=== PATIENT | female | born 1935 | race Caucasian/White ===

== ENCOUNTER 2018-10-25 09:54 | Emergency (ER) | payer MEDICARE ==
[~2018-10-25] VITALS: Ht 162.6 cm; Wt 75.7 kg
[~2018-10-25 09:54] MED LIST: ASPIRIN81 MG PO; SIMVASTATIN40 MG PO
[2018-10-25] MEDS ORDERED: SODIUM CHLORIDE 0.9% 1000ML 1,000 ML IV STA (10:14)
--- NOTE | 2018-10-25 10:43 | Diagnostic Imaging Report ---
CT BRAIN WO HISTORY: Fainting, dizziness COMPARISON: None. Technique: Noncontrast axial scans were obtained from skull base to the vertex. Coronal and sagittal reconstructions obtained from the axial data. One or more of the following dose reduction techniques were used: Automated exposure control, adjustment of the mA and/or kV according to patient size, and/or utilization of iterative reconstruction technique. DISCUSSION: Scalp/Skull: Mild left frontal scalp subcutaneous edema is present. No calvarial fracture Brain sulci: Mildly prominent. Ventricles: Compensatory dilatation. Extra-axial spaces: No masses or fluid collections. Carotid siphon calcifications are present. Parenchyma: Mild bilateral deep white matter hypodensity is likely chronic microvascular ischemic change. Otherwise, no masses, hemorrhage, or large vascular territory acute infarct. Dural sinuses: No abnormal densities. Sellar/Suprasellar region: Intact. Skull base: Intact. Incidental findings: Both ocular lenses are thinned. IMPRESSION: 1. No acute intracranial abnormalities. 2. Mild supratentorial chronic microvascular ischemic change. Mild generalized cerebral volume loss. Signed by: Dr. Pete Neumann M.D. on 10/25/2018 10:40 AM
--- NOTE | 2018-10-25 11:17 | Diagnostic Imaging Report ---
EXAMINATION: CHEST 2 VIEWS INDICATION: Dizziness, weakness. COMPARISON: None FINDINGS: TUBES and LINES: None. LUNGS: Lungs are well inflated. There is mild patchy left basilar opacity. No evidence of pulmonary edema. PLEURA: No pleural effusion or pneumothorax. HEART AND MEDIASTINUM: The cardiomediastinal silhouette is unremarkable. BONES AND SOFT TISSUES: No acute osseous abnormality. UPPER ABDOMEN: No free air under the diaphragm. Surgical clips project over the upper abdomen. IMPRESSION: Mild patchy left basilar opacity, which may reflect a small focus of aspiration or atelectasis. Recommend follow-up chest radiograph in 6-8 weeks to assess for resolution. Signed by: Dr. Sybil Dan MD on 10/25/2018 11:14 AM
[2018-10-25 11:47] LABS: BASOPHILS % 0.2 % (0.0-1.0); EOSINOPHILS % 0.1 % (0.0-6.0); HEMATOCRIT 37.3 % (34.2-44.1); HEMOGLOBIN 12.4 g/dL (12.0-16.0); LYMPHOCYTES # (AUTO) 0.7 (1.0-3.2); LYMPHOCYTES % 5.5 % (18.0-39.1); MEAN CORPUSCULAR HEMOGLOBIN 28.8 pg (28-32); MEAN CORPUSCULAR HGB CONC 33.2 g/dL (31-35); MEAN CORPUSCULAR VOLUME 86.5 fL (81-99); MONOCYTES % 8.3 % (4.4-11.3); NEUTROPHILS # (AUTO) 10.6 (2.1-6.9); NEUTROPHILS % 85.1 % (38.7-80.0); PLATELET COUNT 338 x10e3/uL (140-360); RED BLOOD COUNT 4.31 x10e6/uL (3.6-5.1); RED CELL DISTRIBUTION WIDTH 13.7 % (11.7-14.4)
[2018-10-25 12:03] LABS: BILIRUBIN,URINE NEGATIVE (NEGATIVE); CLARITY,URINE CLOUDY (CLEAR); COLOR,URINE YELLOW (YELLOW); KETONES,URINE TRACE (NEGATIVE); LEUKOCYTE ESTERASE ,URINE LARGE (NEGATIVE); NITRITE,URINE NEGATIVE (NEGATIVE); PROTEIN,URINE DIPSTICK 2+ (NEGATIVE); URINE UROBILINOGEN 1 mg/dL (0.2 - 1)
[2018-10-25 12:15] LABS: ALANINE AMINOTRANSFERASE 23 IU/L (0-55); ALBUMIN 3.1 g/dL (3.5-5.0); ALBUMIN/GLOBULIN RATIO 0.8 (0.8-2.0); ALKALINE PHOSPHATASE 69 IU/L (40-150); ANION GAP 13.7 mmol/L (8-16); BLOOD UREA NITROGEN 15 mg/dL (7-26); BUN/CREATININE RATIO 14 (6-25); CALCIUM 9.9 mg/dL (8.4-10.2); CARBON DIOXIDE 24 mmol/L (22-29); CHLORIDE 101 mmol/L (98-107); CREATINE KINASE 90 IU/L (29-168); CREATININE, SERUM 1.05 mg/dL (0.57-1.11); EST GLOMERULAR FILTRATION RATE 50 ML/MIN (60-); GLUCOSE 113 mg/dL (74-118); POTASSIUM 3.7 mmol/L (3.5-5.1); SODIUM 135 mmol/L (136-145)
[2018-10-25 12:16] LABS: INR 1.03
[2018-10-25 12:17] LABS: PARTIAL THROMBOPLASTIN TIME 31.9 seconds (23.8-35.5)
[2018-10-25 12:36] LABS: WBC,URINE (MAN) >50 /HPF (0-5)
[2018-10-25 12:50] LABS: BACTERIA,URINE MODERATE /HPF; EPITHELIAL CELLS,URINE FEW /LPF
[2018-10-25] MEDS ORDERED: CEFTRIAXONE SOD 1 GM/NS 50 ML 50 ML IV ONE (13:15)
== END 2018-10-25 14:15 | disposition home or self-care (01) ==
LOC: ER 09:54
DX: R55 Syncope and collapse (principal); R53.1 Weakness; N30.91 Cystitis, unspecified with hematuria; E78.5 Hyperlipidemia, unspecified
CPT/HCPCS: 36415; 70450; 71046; 80053; 81001; 82550; 82553; 84484; 85025; 85610; 85730; 87086; 87186; 93005; 99284; J0696; J7030

== ENCOUNTER 2019-12-10 12:33 | Inpatient (IN) | payer MEDICARE ==
[~2019-12-10] VITALS: Ht 162.6 cm; Wt 95.3 kg
[2019-12-10] MEDS ORDERED: SODIUM CHLORIDE 0.9% 1000ML 1,000 ML IV STA (12:47)
[2019-12-10 13:08] LABS: BASOPHILS % 0.1 % (0.0-1.0); EOSINOPHILS % 0.5 % (0.0-6.0); HEMATOCRIT 42.6 % (34.2-44.1); HEMOGLOBIN 13.7 g/dL (12.0-16.0); LYMPHOCYTES # (AUTO) 0.5 (1.0-3.2); MEAN CORPUSCULAR HEMOGLOBIN 28.2 pg (28-32); MEAN CORPUSCULAR HGB CONC 32.2 g/dL (31-35); MEAN CORPUSCULAR VOLUME 87.8 fL (81-99); MONOCYTES # (AUTO) 0.5 (0.2-0.8); MONOCYTES % 6.8 % (4.4-11.3); NEUTROPHILS # (AUTO) 6.8 (2.1-6.9); NEUTROPHILS % 86.2 % (38.7-80.0); PLATELET COUNT 226 x10e3/uL (140-360); RED BLOOD COUNT 4.85 x10e6/uL (3.6-5.1); RED CELL DISTRIBUTION WIDTH 13.9 % (11.7-14.4)
[2019-12-10 13:17] LABS: INR 0.87; PROTHROMBIN TIME 12.3 seconds (11.9-14.5)
[2019-12-10 13:18] LABS: PARTIAL THROMBOPLASTIN TIME 25.4 seconds (23.8-35.5)
[2019-12-10 13:26] LABS: ALANINE AMINOTRANSFERASE 18 IU/L (0-55); ALBUMIN 3.8 g/dL (3.5-5.0); ALBUMIN/GLOBULIN RATIO 1.4 (0.8-2.0); ALKALINE PHOSPHATASE 70 IU/L (40-150); ANION GAP 13.8 mmol/L (8-16); BLOOD UREA NITROGEN 15 mg/dL (7-26); BUN/CREATININE RATIO 17 (6-25); CALCIUM 8.7 mg/dL (8.4-10.2); CARBON DIOXIDE 22 mmol/L (22-29); CHLORIDE 108 mmol/L (98-107); CREATINE KINASE 95 IU/L (29-168); CREATININE, SERUM 0.89 mg/dL (0.57-1.11); EST GLOMERULAR FILTRATION RATE > 60 ML/MIN (60-); GLUCOSE 129 mg/dL (74-118); MAGNESIUM 1.8 MG/DL (1.3-2.1); POTASSIUM 3.8 mmol/L (3.5-5.1); SODIUM 140 mmol/L (136-145)
[2019-12-10 13:35] LABS: B-TYPE NATRIURETIC PEPTIDE2 < 10.0 pg/mL (0-100)
[2019-12-10 14:00] LABS: BILIRUBIN,URINE SMALL (NEGATIVE); CLARITY,URINE SL CLOUDY (CLEAR); COLOR,URINE YELLOW (YELLOW); KETONES,URINE 1+ (NEGATIVE); LEUKOCYTE ESTERASE ,URINE NEGATIVE (NEGATIVE); NITRITE,URINE POSITIVE (NEGATIVE); PROTEIN,URINE DIPSTICK 2+ (NEGATIVE); URINE UROBILINOGEN 0.2 mg/dL (0.2 - 1)
[2019-12-10 14:05] LABS: BACTERIA,URINE MANY /HPF; EPITHELIAL CELLS,URINE FEW /LPF; WBC,URINE (MAN) 0-5 /HPF (0-5)
--- NOTE | 2019-12-10 15:12 | Diagnostic Imaging Report ---
CT BRAIN WO HISTORY: Syncope COMPARISON: Head CT 10/25/2018 Technique: Noncontrast axial scans were obtained from skull base to the vertex. Coronal and sagittal reconstructions obtained from the axial data. One or more of the following dose reduction techniques were used: Automated exposure control, adjustment of the mA and/or kV according to patient size, and/or utilization of iterative reconstruction technique. DISCUSSION: Scalp/Skull: Unremarkable. Brain sulci: Mildly prominent. Ventricles: Compensatory dilatation. Extra-axial spaces: No masses or fluid collections. Carotid siphon calcifications are present. Parenchyma: Mild bilateral deep white matter hypodensity is likely chronic microvascular ischemic change. Otherwise, no masses, hemorrhage, or large vascular territory acute infarct. Dural sinuses: No abnormal densities. Sellar/Suprasellar region: Intact. Skull base: Intact. Incidental findings: None. IMPRESSION: 1. No acute intracranial abnormalities. 2. Mild supratentorial chronic microvascular ischemic change. Mild generalized cerebral volume loss. Signed by: Dr. Pete Neumann M.D. on 12/10/2019 3:09 PM
--- NOTE | 2019-12-10 15:33 | Diagnostic Imaging Report ---
EXAMINATION: CHEST SINGLE (PORTABLE) INDICATION: Near syncope. COMPARISON: Chest radiograph 10-25-2018. FINDINGS: TUBES and LINES: None. LUNGS: Lungs are well inflated. Mild patchy bibasilar opacities. No evidence of lobar consolidation or pulmonary edema. PLEURA: No pleural effusion or pneumothorax. HEART AND MEDIASTINUM: The cardiomediastinal silhouette is unremarkable. There are atherosclerotic calcifications within the aorta. BONES AND SOFT TISSUES: No acute osseous abnormality. UPPER ABDOMEN: No free air under the diaphragm. IMPRESSION: Mild patchy bibasilar opacities, which may represent atelectasis or infectious process in the appropriate clinical setting. No evidence of lobar pneumonia. Signed by: Dr. Sybil Dan MD on 12/10/2019 3:29 PM
--- NOTE | 2019-12-10 16:20 | Emergency Department Note ---
History of Present Illnes History of Present Illness Chief Complaint: General Medicine Complaints History of Present Illness This is a 84 year old female FROM HOME. FELT DIZZY AND WEAK NEAR SYNCOPE, DEFECATED ON HERSELF. AAOX4. WAS HYPOTENSIVE ON ARRIVAL OF EMS AND GIVEN FLUIDS AND NOW BP 120/ SYSTOLIC. PT AWAKE AND ALERT AT ARRIVAL TIME. 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 Any updates have been documented here. Past Medical History Recent Fever: No Clinical Suspicion of Infectio: No New/Unexplained Change in Ment: No Past Medical History: Hyperlipedemia Other Medical History: cholesterol Past Surgical History: Cholecysctectomy, Appendectomy, Hysterectomy, T&A, Tubal Ligation Other Surgery: GB Social History Smoking Cessation: Unknown if ever smoked Counseling Performed: No Alcohol Use: None Any Illegal Drug Use: No Other Last Tetanus: unknown Any Pre-Existing Lines (PICC,: Yes (PIV LEFT AC) Review of Systems Review of Systems Constitutional: Reports weakness EENTM: Reports no symptoms Cardiovascular: Reports no symptoms Respiratory: Reports no symptoms Gastrointestinal: Reports no symptoms Genitourinary: Reports no symptoms Musculoskeletal: Reports no symptoms Integumentary: Reports no symptoms Neurological: Reports no symptoms Psychological: Reports no symptoms Endocrine: Reports no symptoms Hematological/Lymphatic: Reports no symptoms Physical Exam Related Data Allergies: Coded Allergies: No Known Allergies (Unverified , 10/25/18) Triage Vital Signs Vital Signs Date Time Temp Pulse Resp B/P (MAP) Pulse Ox O2 Delivery O2 Flow Rate FiO2 12/10/19 12:43 98.7 76 21 129/63 98 Room Air Vital signs reviewed: Yes Physical Exam CONSTITUTIONAL Constitutional: Present well-developed, Present well-nourished HENT HENT: Present normocephalic, Present atraumatic, Present oropharynx clear/mois t, Present nose normal HENT L/R: Present left ext ear normal, Present right ext ear normal EYES Eyes: Reports PERRL, Reports conjunctivae normal NECK Neck: Present ROM normal PULMONARY Pulmonary: Present effort normal, Present breath sounds normal CARDIOVASCULAR Cardiovascular: Present regular rhythm, Present heart sounds normal, Present capillary refill normal, Present normal rate GASTROINTESTINAL Abdominal: Present soft, Present nontender, Present bowel sounds normal GENITOURINARY Genitourinary: Present exam deferred SKIN Skin: Present warm, Present dry MUSCULOSKELETAL Musculoskeletal: Present ROM normal NEUROLOGICAL Neurological: Present alert, Present oriented x 3, Present no gross motor or sensory deficits PSYCHOLOGICAL Psychological: Present mood/affect normal, Present judgement normal Results Laboratory Result Diagram: 12/10/19 1258 12/10/19 1258 Laboratory Laboratory Tests Test 12/10/19 13:35 12/10/19 12:58 Urine Color Yellow (YELLOW) Urine Clarity Sl cloudy (CLEAR) Urine pH 6 (5 - 7) Urine Specific [place] >=1.030 (1.010-1.025) Urine Protein 2+ (NEGATIVE) Urine Glucose (UA) Negative (NEGATIVE) Urine Ketones 1+ (NEGATIVE) Urine Blood Moderate (NEGATIVE) Urine Nitrite Positive (NEGATIVE) Urine Bilirubin Small (NEGATIVE) Urine Urobilinogen 0.2 mg/dL (0.2 - 1) Urine Leukocyte Esterase Negative (NEGATIVE) Urine RBC 6-10 /HPF (0-5) Urine WBC 0-5 /HPF (0-5) Urine Epithelial Cells Few /LPF (NONE) Urine Bacteria Many /HPF (NONE) White Blood Count 7.89 x10e3/uL (4.8-10.8) Red Blood Count 4.85 x10e6/uL (3.6-5.1) Hemoglobin 13.7 g/dL (12.0-16.0) Hematocrit 42.6 % (34.2-44.1) Mean Corpuscular Volume 87.8 fL (81-99) Mean Corpuscular Hemoglobin 28.2 pg (28-32) Mean Corpuscular Hemoglobin Concent 32.2 g/dL (31-35) Red Cell Distribution Width 13.9 % (11.7-14.4) Platelet Count 226 x10e3/uL (140-360) Neutrophils (%) (Auto) 86.2 % (38.7-80.0) Lymphocytes (%) (Auto) 6.0 % (18.0-39.1) Monocytes (%) (Auto) 6.8 % (4.4-11.3) Eosinophils (%) (Auto) 0.5 % (0.0-6.0) Basophils (%) (Auto) 0.1 % (0.0-1.0) Neutrophils # (Auto) 6.8 (2.1-6.9) Lymphocytes # (Auto) 0.5 (1.0-3.2) Monocytes # (Auto) 0.5 (0.2-0.8) Eosinophils # (Auto) 0.0 (0.0-0.4) Basophils # (Auto) 0.0 (0.0-0.1) Absolute Immature Granulocyte (auto 0.03 x10e3/uL (0-0.1) Prothrombin Time 12.3 seconds (11.9-14.5) Prothromb Time International Ratio 0.87 Activated Partial Thromboplast Time 25.4 seconds (23.8-35.5) Sodium Level 140 mmol/L (136-145) Potassium Level 3.8 mmol/L (3.5-5.1) Chloride Level 108 mmol/L (98-107) Carbon Dioxide Level 22 mmol/L (22-29) Anion Gap 13.8 mmol/L (8-16) Blood Urea Nitrogen 15 mg/dL (7-26) Creatinine 0.89 mg/dL (0.57-1.11) Estimat Glomerular Filtration Rate > 60 ML/MIN (60-) BUN/Creatinine Ratio 17 (6-25) Glucose Level 129 mg/dL (74-118) Lactic Acid Level 1.7 mmol/L (0.5-2.0) Calcium Level 8.7 mg/dL (8.4-10.2) Magnesium Level 1.8 MG/DL (1.3-2.1) Total Bilirubin 0.6 mg/dL (0.2-1.2) Aspartate Amino Transf (AST/SGOT) 27 IU/L (5-34) Alanine Aminotransferase (ALT/SGPT) 18 IU/L (0-55) Alkaline Phosphatase 70 IU/L (40-150) Creatine Kinase 95 IU/L (29-168) Creatine Kinase MB 1.00 ng/mL (0-5.0) Troponin I 0.002 ng/mL (0-0.300) B-Type Natriuretic Peptide < 10.0 pg/mL (0-100) Total Protein 6.5 g/dL (6.5-8.1) Albumin 3.8 g/dL (3.5-5.0) Globulin 2.7 g/dL (2.3-3.5) Albumin/Globulin Ratio 1.4 (0.8-2.0) Lab results reviewed: Yes Imaging Imaging results reviewed: Yes Impressions CT BRAIN WO HISTORY: Syncope COMPARISON: Head CT 10/25/2018 Technique: Noncontrast axial scans were obtained from skull base to the vertex. Coronal and sagittal reconstructions obtained from the axial data. One or more of the following dose reduction techniques were used: Automated exposure control, adjustment of the mA and/or kV according to patient size, and/or utilization of iterative reconstruction technique. DISCUSSION: Scalp/Skull: Unremarkable. Brain sulci: Mildly prominent. Ventricles: Compensatory dilatation. Extra-axial spaces: No masses or fluid collections. Carotid siphon calcifications are present. Parenchyma: Mild bilateral deep white matter hypodensity is likely chronic microvascular ischemic change. Otherwise, no masses, hemorrhage, or large vascular territory acute infarct. Dural sinuses: No abnormal densities. Sellar/Suprasellar region: Intact. Skull base: Intact. Incidental findings: None. IMPRESSION: 1. No acute intracranial abnormalities. 2. Mild supratentorial chronic microvascular ischemic change. Mild generalized cerebral volume loss. Signed by: Dr. Pete Neumann M.D. on 12/10/2019 3:09 PM EXAMINATION: CHEST SINGLE (PORTABLE) INDICATION: Near syncope. COMPARISON: Chest radiograph 10-25-2018. FINDINGS: TUBES and LINES: None. LUNGS: Lungs are well inflated. Mild patchy bibasilar opacities. No evidence of lobar consolidation or pulmonary edema. PLEURA: No pleural effusion or pneumothorax. HEART AND MEDIASTINUM: The cardiomediastinal silhouette is unremarkable. There are atherosclerotic calcifications within the aorta. BONES AND SOFT TISSUES: No acute osseous abnormality. UPPER ABDOMEN: No free air under the diaphragm. IMPRESSION: Mild patchy bibasilar opacities, which may represent atelectasis or infectious process in the appropriate clinical setting. No evidence of lobar pneumonia. Signed by: Dr. Sybil Dan MD on 12/10/2019 3:29 PM Procedures 12 Lead ECG Interpretation ECG Interpretation : ECG: ECG 1 Bank Representative: Interpreted by ED physician Date: Dec 10, 2019 Time: 12:49 Rhythm: sinus rhythm Rate: normal (74) QRS axis: normal ST segments normal: Yes T waves normal: Yes Clinical Impression: normal ECG Assessment & Plan Medical Decision Making MDM near-syncope with loss of bowel fx, hypotensive per EMS - cbc, chem, ecg, cardiacs, pancx's, ua, cxr, head ct - r/o stemi/nstemi, electrolyte abnl, cerebral bleed Reassessment Reassessment spoke with Dr Doherty for admit Assessment & Plan Final Impression: (1) Near syncope Depart Disposition: ADMITTED Last Vital Signs Date Time Temp Pulse Resp B/P (MAP) Pulse Ox O2 Delivery O2 Flow Rate FiO2 12/10/19 15:17 86 16 97 Room Air 12/10/19 12:43 98.7 Home Meds Reported Medications Aspirin (ASPIRIN) 81 Mg Tab.chew, 81 MG PO DAILY 08/07/15 Simvastatin (SIMVASTATIN) 40 Mg Tablet, 40 MG PO 2100, #30 TAB 08/07/15 Medications in the ED Sodium Chloride 1,000 ml @ 0 mls/hr Q0M STAT IV Last administered on 12/10/19at 13:16; Admin Dose 999 MLS/HR; Start 12/10/19 at 12:47; Stop 12/10/19 at 12:53; Status DC Ceftriaxone Sodium 100 ml @ 100 mls/hr DAILY IV ; Start 12/11/19 at 15:30; Stop 12/16/19 at 15:29 Azithromycin 250 ml @ 100 mls/hr DAILY IV ; Start 12/11/19 at 09:00; Stop 12/10/19 at 15:15; Status DC Ascorbic Acid 500 mg BID PO ; Start 12/10/19 at 17:00; Stop 01/09/20 at 16:59 Zinc Sulfate 50 mg DAILY PO ; Start 12/11/19 at 09:00; Stop 01/10/20 at 08:59 Enoxaparin Sodium 30 mg Q12H SC ; Start 12/10/19 at 17:00; Stop 12/17/19 at 16:59 Azithromycin 250 ml @ 100 mls/hr Q24H IV ; Start 12/10/19 at 17:00; Stop 12/17/19 at 16:59 LO ANDREW MD Dec 10, 2019 16:20
[2019-12-10] MEDS ORDERED: ONDANSETRON HCL INJ 2MG/ML 2ML 2 MG/ML VIAL IV PRN (17:00)
[2019-12-10] MEDS ORDERED: ASCORBIC ACID 500 MG TAB PO SCH (17:00)
[2019-12-10] MEDS ORDERED: ENOXAPARIN 30 MG/0.3 ML SYR SC SCH (17:00)
[2019-12-10] MEDS: AZITHROMYCIN 500MG/NS 250 ML 250 ML IV SCH (18:04)
[2019-12-10] MEDS ORDERED: SIMVASTATIN20 MG PO (18:14)
[2019-12-10 19:47] VITALS: BP 127/67
[2019-12-10 19:48] VITALS: BP 127/67
--- NOTE | 2019-12-10 19:55 | NUR ---
patient is a new admit that arrived via wheelchair. patient is awake and talking. patient has telemetry attached. patient has been transferred into the bed. bed is in the lowest position and call light is within reach. will continue to monitor patient.
[2019-12-10] MEDS: ACETAMINOPHEN 325 MG TAB PO PRN (20:36)
[2019-12-10 20:57] VITALS: BP 127/67
[2019-12-11] VITALS (8 sets, daily range): BP systolic 113–133; BP diastolic 58–72
[2019-12-11 01:24] LABS: CREATINE KINASE 111 IU/L (29-168)
[2019-12-11 05:31] LABS: BASOPHILS % 0.4 % (0.0-1.0); EOSINOPHILS # (AUTO) 0.1 (0.0-0.4); EOSINOPHILS % 2.1 % (0.0-6.0); HEMATOCRIT 37.4 % (34.2-44.1); LYMPHOCYTES # (AUTO) 0.7 (1.0-3.2); LYMPHOCYTES % 10.2 % (18.0-39.1); MEAN CORPUSCULAR HEMOGLOBIN 27.9 pg (28-32); MEAN CORPUSCULAR HGB CONC 32.1 g/dL (31-35); MONOCYTES # (AUTO) 0.9 (0.2-0.8); MONOCYTES % 12.8 % (4.4-11.3); NEUTROPHILS % 74.2 % (38.7-80.0); PLATELET COUNT 203 x10e3/uL (140-360)
--- NOTE | 2019-12-11 06:18 | NUR ---
MD notified of routine consultation via telephone.
[2019-12-11 06:19] LABS: CREATINE KINASE MB 1.3 ng/mL (0-5.0)
[2019-12-11 06:38] LABS: ALANINE AMINOTRANSFERASE 18 IU/L (0-55); ALBUMIN 3.3 g/dL (3.5-5.0); ALBUMIN/GLOBULIN RATIO 1.3 (0.8-2.0); ALKALINE PHOSPHATASE 63 IU/L (40-150); ANION GAP 11.6 mmol/L (8-16); BLOOD UREA NITROGEN 11 mg/dL (7-26); BUN/CREATININE RATIO 14 (6-25); CALCIUM 8.7 mg/dL (8.4-10.2); CARBON DIOXIDE 22 mmol/L (22-29); CHLORIDE 107 mmol/L (98-107); CHOL/HDL RATIO 3.8 (3.0-3.6); CHOLESTEROL 132 MD/DL (0-199); CREATININE, SERUM 0.81 mg/dL (0.57-1.11); EST GLOMERULAR FILTRATION RATE > 60 ML/MIN (60-); GLUCOSE 95 mg/dL (74-118); HDL CHOLESTEROL 35 MG/DL (40-60); LDL CHOLESTEROL 70 MG/DL (60-130); POTASSIUM 3.6 mmol/L (3.5-5.1); SODIUM 137 mmol/L (136-145); TRIGLYCERIDES 135 MG/DL (0-149)
--- NOTE | 2019-12-11 07:07 | NUR ---
report given to day nurse.
--- NOTE | 2019-12-11 07:25 | NUR ---
PATIENT IN BED RESTING WITH NO S/S OF DISTRESS. CM CATHETER DRAINING YELLOW URINE. BED IN LOWER POSITION, CALL LIGHT AT REACH.
[2019-12-11] MEDS ORDERED: AZITHROMYCIN 500MG/NS 250 ML 250 ML IV SCH (09:00)
[2019-12-11] MEDS ORDERED: ZINC SULFATE 50 MG CAP PO SCH (09:00)
[2019-12-11] MEDS: ASPIRIN 81 MG ENTERIC COATED PO SCH (09:18)
[2019-12-11] MEDS: ACETAMINOPHEN 325 MG TAB PO PRN (10:08)
--- NOTE | 2019-12-11 11:04 | NUR ---
BED SIDE CAROTID DOPPLER IN PROGRESS. PATIENT IN BED WITH CALL LIGHT AT REACH.
--- NOTE | 2019-12-11 15:28 | NUR ---
MD IN TO SEE PATIENT, NO NEW ORDER RECEIVED.
[2019-12-11] MEDS: AZITHROMYCIN 500MG/NS 250 ML 250 ML IV SCH (16:00)
[2019-12-11] MEDS: CEFTRIAXONE SOD 2 GM/NS 100 ML 100 ML IV SCH (16:10)
[2019-12-11] MEDS ORDERED: DOCUSATE SODIUM 100 MG CAP PO PRN (16:45)
[2019-12-11] MEDS: SIMVASTATIN 40 MG TAB PO SCH (20:12)
[2019-12-11] MEDS ORDERED: MELATONIN 5 MG TABLET PO PRN (21:00)
--- NOTE | 2019-12-11 23:10 | History and Physical ---
CHIEF COMPLAINT: Syncopal episode. HISTORY OF PRESENT ILLNESS: 84-year-old female, morbidly obese, has a history of hyperlipidemia, presents to the ED after having a syncopal episode that occurred at home. The patient reports that her told her a story that she was eating cereal yesterday morning and when she was ambulating from the living room to her kitchen, she suddenly collapsed and fell on the ground. She has never experienced anything like this before. No reports of any chest pain, palpitations, slurred-like speech, stroke-like symptoms. No reports of any seizure-like activity. The patient has never experienced anything like this before and came into the ED for further evaluation and management. The patient was seen and evaluated at bedside on the medical floor. She is currently doing well with no other issues at this time. No recent infection cough, congestion, or any fever. REVIEW OF SYSTEMS: Pertinent positive had a syncopal episode, lightheadedness. The rest of 14-point review of systems have been reviewed with the patient and are negative. ALLERGIES: NO KNOWN DRUG ALLERGIES. HOME MEDICATIONS: Aspirin 81 mg air daily and simvastatin 40 mg daily. PAST MEDICAL HISTORY: Hyperlipidemia. PAST SURGICAL HISTORY: Reports none. FAMILY HISTORY: Hypertension and diabetes. SOCIAL HISTORY: No drugs or alcohol. Does not smoke. Good social support. PHYSICAL EXAMINATION: VITAL SIGNS: Temperature is 99.1, pulse 72, respiratory rate is 18, blood pressure 118/65, and pulse ox 99% on room air. GENERAL: Not in acute distress. Alert and oriented x3. Cooperative on examination. HEENT: Head is normocephalic and atraumatic. Eyes; pupils are equal, round, and reactive to light bilaterally. Extraocular movements are intact bilaterally. NECK: Supple. Good range of motion throughout. No symptoms in the posterior pharynx. Has poor dentition. PULMONARY : Clear to auscultation bilaterally. No wheezing, rales, or rhonchi. No crackles appreciated. CARDIOVASCULAR: Positive S1 and S2. No murmurs, rubs, or gallops. ABDOMEN: Soft, nondistended, and nontender to palpation. Bowel sounds present. MUSCULOSKELETAL: Strength is 5/5 throughout. No evidence of any muscle deficits on examination. No weakness appreciated. NEUROLOGIC: Cranial 2 through 12 are grossly intact. No evidence of any muscle deficits one exam. SKIN: Intact. Warm to touch. Good cap refill. PSYCHIATRIC: Normal affect and mood. EXTREMITIES: No edema. Good range of motion throughout. LABORATORY FINDINGS: White count 6.4, hemoglobin 12, hematocrit 37, and platelets of 203. Coagulation; PT 12, INR 0.87, PTT 25. Chemistry; sodium 137, potassium 3.6, chloride 107, bicarb 22, anion gap of 11, BUN is 11, creatinine 0.81, glucose is 95. Lactic acid 1.7, calcium is 8.7. LFTs within normal range. Troponins were all negative. Total protein 5.9, albumin is 3.3 LDL was 70. Urinalysis noted possible underlying UTI. The coronavirus is pending. MICROBIOLOGY: Blood cultures no growth today. Urine culture shows gram-negative rods. IMAGING STUDIES: Chest x-ray shows mild patchy bibasilar opacity which may represent atelectasis or infectious process in appropriate clinical setting. No evidence of lobar pneumonia. CT brain shows no acute intracranial abnormality. Mild supratentorial chronic microvascular ischemic changes. Mild generalized cerebral volume loss. Carotid Doppler is pending. IMPRESSION: 1. Syncopal episode seems to be more vasovagal in nature. 2. Hyperlipidemia. 3. Probable community-acquired pneumonia. 4. Urinary tract infection. PLAN: At this time, I will go ahead and get a Cardiology and Neurology consultation. A 2D echo has been ordered. Continue with cardiac telemetry. Cardiac enzymes are negative. Continue with aspirin and statin. As per Neurology, MRI of the brain will be ordered. Carotid ultrasound as well. I will go ahead and resume same home medications with no changes. We will put on SCDs for now. Lovenox after MRI of the brain is back and found to be negative. Get PT to evaluate and treat. Imaging studies were consistent with concerns for pneumonia. We will go ahead and treat with IV antibiotics. Her UA is consistent with the UTI. Urine cultures positive already. Blood cultures no growth to date. We will continue with IV antibiotics for now. Consultants involved Neurology and Cardiology. MD OSCAR Akhtar/JAC /[id number]
[2019-12-12] VITALS (8 sets, daily range): BP systolic 111–134; BP diastolic 53–98
--- NOTE | 2019-12-12 06:47 | NUR ---
patient is resting in bed.
--- NOTE | 2019-12-12 07:00 | NUR ---
RECEIVED BEDSIDE SHIFT REPORT FROM OFF GOING NIGHT NURSE. PATIENT IN STABLE CONDITION, NO S/S OF DISTRESS NOTED.TELEMETRY APPLIED. CM APPLIED PATENT DRAINING CLEAR YELLOW URINE INTO THE DRAINAGE BAG. BED ALARM APPLIED. BED IN LOWEST POSITION AND LOCKED.
[2019-12-12] MEDS: CEFTRIAXONE SOD 2 GM/NS 100 ML 100 ML IV SCH (08:48)
[2019-12-12] MEDS: ASPIRIN 81 MG ENTERIC COATED PO SCH (08:48)
--- NOTE | 2019-12-12 10:11 | Consultation ---
DATE OF CONSULTATION: 12/12/2019 REASON FOR CONSULTATION: Syncope. CHIEF COMPLAINT: Passed out. HISTORY OF PRESENT ILLNESS: This is an 84-year-old female with history of hyperlipidemia. The patient presents to [facility] ER with complaints of passing out. Cardiology was consulted to evaluate the patient. The patient is seen in room, reports that she was eating cereal and felt nauseous, went to the kitchen in which she felt very weak and falling to her knees and also had some incontinence of stool and urine at the same time. She called for in which EMS was called. Apparently, the patient was noted to be hypotensive, was given fluid bolus. UA suggestive of UTI and urine cultures with gram-negative rods. The patient denies any chest pain, palpitations, dizziness, lightheadedness prior to the event. Her main complaint is she felt very weak and nauseous. PAST MEDICAL HISTORY: Hyperlipidemia. PAST SURGICAL HISTORY: Appendectomy, hysterectomy, tonsils and adenectomy, and tubal ligation. SOCIAL HISTORY: She is . She denies any alcohol use or tobacco use. FAMILY HISTORY: Mother in her 70s, unknown history. Father , history of gastric ulcers. HOME MEDICATION: Simvastatin 40 mg daily. ALLERGIES: NO KNOWN ALLERGIES. REVIEW OF SYSTEMS: GENERAL: Denies any weight changes, fatigue, weakness, fevers, chills, or night sweats. SKIN: No rashes or bruises. HEENT: Denies any headaches. Positive for nausea. No vomiting. Denies any vision change, blurred vision, double vision, epistaxis, sore throat, or swollen neck or stiff neck. HEART: Denies any chest pains. Positive for dyspnea on exertion. Denies any palpitations, orthopnea, PND, or lower extremity edema. RESPIRATORY: Denies any shortness of breath, any wheezing coughing, or hemoptysis. GI: Reports good appetite. Positive nausea prior to the event. Denies any vomiting, any melena tarry bloody stools. GENITOURINARY: Positive for frequency and urgency. Denies any hematuria or dysuria. VASCULAR: Denies any lower extremity edema or claudication. MUSCULOSKELETAL: Denies any muscle weakness. Positive for generalized joint pains, back pain. NEUROLOGIC: Denies any numbness, tingling, or tremors. Positive for syncopal episode. HEMATOLOGY: Denies any bleeding or bruising. ENDOCRINE: Denies any heat or cold intolerance, polyuria, polydipsia, or polyphagia. PHYSICAL EXAMINATION: VITAL SIGNS: Height of 64 inches, weight 210 pounds, BMI 36. Temperature 97.7, pulse 72, respiratory rate 18, blood pressure 120/76, and pulse ox 99% on room air. GENERAL: Appears stated age, reliable informant. No acute distress. SKIN: No rashes or bruises noted. HEENT: Normocephalic. Pupils are equal, reactive to light. Extraocular movements intact. NECK: Trachea midline. No JVD. No carotid bruits noted. Oral mucosa pink. HEART: Regular rate and rhythm. PMI about 5th intercostal space. LUNGS: Bilateral breath sounds. Clear to auscultation. Good airway entry and exit. ABDOMEN: Soft, nontender, and nondistended. No organomegaly noted. MUSCULOSKELETAL: Good muscle strength throughout. Trace lower extremity edema noted. VASCULAR: +2 radial pulses bilaterally. +1 DP and PT pulses bilaterally. NEUROLOGIC: Cranial nerves II through XII seem intact. LABORATORY DATA: White count 6, hemoglobin 12, hematocrit 37, and platelets 203. Sodium 137, potassium 3.6, chloride 107, BUN 11, creatinine 0.8, and glucose 95. BNP less than 10. Troponin I 0.002, next less than 0.001, next 0.002. LDL 70, HDL 35. UA showing many bacteria. Urine culture showing gram-negative rods. EKG showing normal sinus rhythm. CT head showing no acute abnormalities, however, showing mild chronic microvascular ischemic changes. Chest x-ray showing mild patchy bilateral opacities. Ryan virus PCR not detected. ASSESSMENT: 1. Syncopal episode. 2. Urinary tract infection. 3. Hyperlipidemia. PLAN: The patient presents to [facility] with complaints of weakness and near syncopal episode. The patient denies passing out, however, quite unsure. Continue tele monitoring. Tele has been reviewed. No arrhythmias noted. Echo to evaluate heart function and structure. We will do a carotid Doppler to evaluate for any carotid disease. Antibiotic therapy as per primary. We will continue to follow the patient. Further recommendations as clinical course dictates. Thank you very much for this consult. Dictated by Ottoniel Fagan, MAGDY Yesenia Bach MD DC/JAC /[id number]
[2019-12-12] MEDS ORDERED: VITAMIN E400 UNI1 PO (10:25)
[2019-12-12] MEDS ORDERED: CO Q-10 100 MG1 EACH PO (10:27)
[2019-12-12] MEDS ORDERED: AZO CRANBERRY250 MG PO (10:29)
--- NOTE | 2019-12-12 11:17 | Consultation ---
DATE OF CONSULTATION: 12/11/2019 Cardiac Consultation. REASON FOR CONSULTATION: Syncope. HISTORY OF PRESENT ILLNESS: This is a delightful 84-year-old lady, who is only on aspirin and simvastatin. She denied having any major illness. Looking at her record in the past she had PE and other things, but she denied particularly having any problem. She is very active. She is at home. She admits she is a little bit forgetful. She was standing in front of her sink. She had momentary loss of consciousness. She managed to be on the floor, but she also at the same time lost control of her #2. It was watery. Her called 911 and she came to the hospital. The patient denied having any chest pain. No shortness of breath. No prior syncope or presyncope. No palpitation. No prior dizzy spells. REVIEW OF SYSTEMS: Review of systems was done to all systems, will be summarized for clarity. GENERAL: No fever, no chills. No exposure to COVID. HEENT: Little decreased hearing. PULMONARY: No cough. No hemoptysis. No pleuritic chest pain. CARDIAC: No orthopnea, no paroxysmal nocturnal dyspnea. No prior history of syncope except for the above episode. No palpitation. : No incontinence. No hematuria. No dysuria. HEMATOLOGY: No easy bruising or bleeding. NEUROLOGIC: No prior seizure activity. No weakness. PSYCHIATRIC: The patient is a little bit forgetful, but she is still managing well. ENDOCRINE: No diabetes. No hypertension. SOCIAL HISTORY: She is . She stopped smoking more than 40 years ago and she was not really a big smoker. She drinks seldom a drink. She stay with her . PAST SURGICAL HISTORY: Cataract surgery, hypercholesteremia, and other minor illnesses. FAMILY HISTORY: Father of bleeding ulcer in his 80s. Mother of dementia in her 80s. She lost one of her two brothers at age 60, she does not recall what illness he got. She does have healthy sister, three daughters all are healthy except one who is now in recovery from breast cancer. PHYSICAL EXAMINATION: VITAL SIGNS: Height of 5 feet 4 inches, weight of 210 pounds, blood pressure 110/60, heart rate of 60, respiratory rate of 18. HEENT: Pupils are reactive. NECK: No elevation of jugular venous pulsation. No bruit. CHEST: Clear to auscultation and percussion. HEART: PMI 5th intercostal space. Normal first and second heart sound. ABDOMEN: Soft with no organomegaly. No abdominal bruits. EXTREMITIES: No cyanosis, no clubbing, no edema. No signs of deep venous thrombosis. NEUROLOGIC: Awake, alert, and oriented. No motor or sensory deficits. LABORATORY DATA: Sodium of 137, potassium of 3.6, BUN of 11, creatinine of 0.8, glucose of 95. White cell count of 6.7, hemoglobin 12, hematocrit 37%, and platelet count of 203,000. EKG, no acute changes. Telemetry review, normal sinus rhythm, no long pauses. Triglycerides of 135, cholesterol of 132, HDL of 39, LDL of 70. CT head, no acute changes. Chest x-ray, some opacity consistent of possible atelectatic changes. IMPRESSION AND PLAN: 1. Syncope. 2. Other minor illnesses. 3. A little bit forgetful. 4. Hypercholesteremia. 5. Dyspnea on exertion, but stable. From a cardiac point of view we will review her carotid Doppler, we will review her echocardiogram. I would recommend observation on telemetry. Pending on her course further steps to be done. MD ED Galicia/JAC /[id number]
--- NOTE | 2019-12-12 14:36 | Diagnostic Imaging Report ---
Exam: Brain MRI without IV contrast History: Near syncope. Comparison studies: Head CT 12/10/2019 Technique: Sagittal and axial T2 FS, axial DWI, axial T2*GRE, axial T1 FLAIR and axial coronal T2 FLAIR. Intravenous contrast: None Findings: Scalp: Normal in signal. No masses. Bone marrow: Normal in signal intensity. Brain sulci: Mildly prom. Ventricles: Mild compensatory dilatation. No hydrocephalus. Extra axial spaces: No mass, no fluid collection. Parenchyma: No mass, hemorrhage or acute ischemia. A few scattered T2 FLAIR hyperintense foci in the supratentorial white matter are nonspecific but are most compatible with chronic microvascular ischemic changes. Chronic T2 FLAIR hyperintense insult within the central radha may also be due to chronic microvascular ischemic changes or less likely sequela of remote metabolic insult such as that from osmotic demyelination. There is mild nonspecific asymmetric volume loss along the right anteromedial temporal lobe and right hippocampus which is unchanged from the most recent 10/25/2018 CT but has slightly progressed from the more remote head CT of 08/07/2015. Suprasellar region: No abnormalities. Craniocervical junction: Patent foramen magnum. No Chiari malformation. Vessels: Normal flow-voids in the arteries and sinuses. Incidental findings: Bilateral intraocular lens replacements. IMPRESSION: No acute intracranial abnormalities. Chronic findings: 1. Mild supratentorial microvascular ischemic changes. 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 3. Nonspecific disproportion right anteromedial temporal lobe/hippocampal volume loss superimposed on mild generalized parenchymal volume loss. Signed by: Dr. Ottoniel Gonzalez M.D. on 12/12/2019 2:33 PM
--- NOTE | 2019-12-12 15:00 | NUR ---
Discontinuing PT services since patient is Mod I in functional mobility. Thank you Addendum: 12/12/19 at 1500 by Chinedu kohler PT Amended: Links added.
[2019-12-12] MEDS: AZITHROMYCIN 500MG/NS 250 ML 250 ML IV SCH (16:45)
[2019-12-12] MEDS ORDERED: ENOXAPARIN SOD INJ 40 MG/0.4 ML SYR SC SCH (17:00)
--- NOTE | 2019-12-12 18:34 | Progress Note ---
DATE: 12/12/2019 Medicine Progress Note SUBJECTIVE: The patient is currently doing well. She had her MRI of the brain, pending result. PHYSICAL EXAMINATION: VITAL SIGNS: Temperature is 98.5, pulse 70, respiratory rate is 20, blood pressure 134/63, pulse ox 99% on room air. GENERAL: Not in acute distress. Alert and oriented x3. Cooperative on examination. HEENT: Head is normocephalic and atraumatic. Eyes; pupils are equal, round, and reactive to light bilaterally. Extraocular movements are intact bilaterally. Throat, no evidence of any erythema or exudates in the posterior pharynx. Has poor dentition. NECK: Supple. Good range of motion. PULMONARY : Clear to auscultation bilaterally. No wheezing, rales, or rhonchi. No crackles appreciated. CARDIOVASCULAR: Positive S1 and S2. No murmurs, rubs, or gallops. ABDOMEN: Soft, nondistended, and nontender to palpation. Bowel sounds present. MUSCULOSKELETAL: Strength is 5/5 throughout. No evidence of any muscle deficits on examination. SKIN: Intact. Warm to touch. Good cap refill. PSYCHIATRIC: Normal affect and mood. EXTREMITIES: No edema. Good range of motion throughout. LABORATORY FINDINGS: Show white count 6.7, hemoglobin is 12, hematocrit 37, platelets of 203. Chemistry; sodium 137, potassium 3.6, chloride 107, bicarb 22, anion gap of 11, BUN is 11, creatinine is 0.81, glucose is 95. Troponins are all negative. BNP less than 10. Albumin was 3.3. Urinalysis noted. Coronavirus not detected. MICROBIOLOGY: Urine culture shows two species of E coli, which are sensitive to cephalosporins, which the patient is currently on. Blood cultures no growth today. IMAGING STUDIES: MRI of the brain shows no acute intracranial findings. Carotid Doppler is pending. 2D echo is pending. IMPRESSION: 1. Syncopal episode seems to be more vasovagal in nature. 2. Hyperlipidemia. 3. Probable community-acquired pneumonia. 4. Urinary tract infection. PLAN: At this time Cardiology and Neurology are following. A 2D echo is pending results including carotid ultrasound. MRI of the brain found to be negative. Continue with aspirin and statin. Put on Lovenox for DVT prophylaxis. Get PT/OT evaluation. Her UA is consistent with UTI pending and it is sensitive to cephalosporins in which she is currently on IV antibiotics. Otherwise, we will continue to monitor. Get morning labs. MD OSCAR Akhtar/JAC /[id number]
--- NOTE | 2019-12-12 19:05 | NUR ---
COMPLETED BEDSIDE SHIFT REPORT AND ROUNDING WITH ONCOMING NIGHT NURSE. PATIENT IN STABLE CONDITION, NO S/S OF DISTRESS NOTED.TELEMETRY APPLIED. CM APPLIED PATENT DRAINING CLEAR YELLOW URINE INTO THE DRAINAGE BAG. BED ALARM APPLIED. BED IN LOWEST POSITION AND LOCKED, SIDE RIALS X2, NONSKID SOCKS APPLIED. CALL LIGHT WITHIN REACH.
[2019-12-12] MEDS: ACETAMINOPHEN 325 MG TAB PO PRN (21:36)
[2019-12-12] MEDS: SIMVASTATIN 40 MG TAB PO SCH (21:40)
[2019-12-13] VITALS: BP 123/60
--- NOTE | 2019-12-13 03:12 | NUR ---
Patient is resting in the bed.bed alarm on.bed locked and in lowest position.valdez care given.
[2019-12-13 04:00] VITALS: BP 124/61
[2019-12-13 06:12] LABS: BASOPHILS % 0.2 % (0.0-1.0); EOSINOPHILS # (AUTO) 0.1 (0.0-0.4); EOSINOPHILS % 2.2 % (0.0-6.0); HEMATOCRIT 34.5 % (34.2-44.1); HEMOGLOBIN 12.1 g/dL (12.0-16.0); LYMPHOCYTES # (AUTO) 1.1 (1.0-3.2); LYMPHOCYTES % 18.4 % (18.0-39.1); MEAN CORPUSCULAR HEMOGLOBIN 31.2 pg (28-32); MEAN CORPUSCULAR HGB CONC 35.1 g/dL (31-35); MEAN CORPUSCULAR VOLUME 88.9 fL (81-99); MONOCYTES # (AUTO) 0.8 (0.2-0.8); MONOCYTES % 14.2 % (4.4-11.3); NEUTROPHILS # (AUTO) 3.8 (2.1-6.9); NEUTROPHILS % 64.5 % (38.7-80.0); PLATELET COUNT 169 x10e3/uL (140-360); RED BLOOD COUNT 3.88 x10e6/uL (3.6-5.1); RED CELL DISTRIBUTION WIDTH 14.5 % (11.7-14.4)
[2019-12-13 06:27] LABS: ANION GAP 10.5 mmol/L (8-16); BLOOD UREA NITROGEN 13 mg/dL (7-26); BUN/CREATININE RATIO 17 (6-25); CALCIUM 8.6 mg/dL (8.4-10.2); CARBON DIOXIDE 25 mmol/L (22-29); CHLORIDE 106 mmol/L (98-107); CREATININE, SERUM 0.76 mg/dL (0.57-1.11); EST GLOMERULAR FILTRATION RATE > 60 ML/MIN (60-); GLUCOSE 90 mg/dL (74-118); POTASSIUM 3.5 mmol/L (3.5-5.1); SODIUM 138 mmol/L (136-145)
--- NOTE | 2019-12-13 07:00 | NUR ---
BEDSIDE SHIFT REPORT RECEIVED FROM THE WET PAN MIXER RN. EDUCATED PT ABOUT FALL PRECAUTIONS. PT VERBALIZED UNDERSTANDING. CALL LIGHT WITH IN EASY REACH. INSTRUCTED PT TO USE CALL LIGHT FOR ALL THE NEEDS. BED IS LOW AND LOCKED. SIDE RAILS X2. BED ALARM IS ON. PT DENIES NEEDS AT THIS TIME.
--- NOTE | 2019-12-13 07:00 | NUR ---
Bed side shift report given to oncoming rn.stable condition.
--- NOTE | 2019-12-13 07:01 | NUR ---
CM PRESENT WITH PT.
[2019-12-13 07:43] VITALS: BP 137/68
[2019-12-13 08:01] VITALS: BP 137/68
[2019-12-13] MEDS: CEFTRIAXONE SOD 2 GM/NS 100 ML 100 ML IV SCH (08:11)
[2019-12-13] MEDS: ACETAMINOPHEN 325 MG TAB PO PRN (08:11)
[2019-12-13] MEDS: ASPIRIN 81 MG ENTERIC COATED PO SCH (08:11)
--- NOTE | 2019-12-13 12:00 | NUR ---
REMOVE CM PER DR. FRITZ.
[2019-12-13 12:02] VITALS: BP 127/61
--- NOTE | 2019-12-13 12:33 | NUR ---
CM REMOVED PER DR. FRITZ. TIP INTACT. PT TOLERATED WELL. 700 ML URINE NOTED IN CM BAG. PT DENIED FURTHER NEEDS.
[2019-12-13] MEDS ORDERED: CEFDINIR300 MG PO (13:18)
--- NOTE | 2019-12-13 13:57 | NUR ---
CHRIS TO D/C PT PER DR. FRITZ AND DR. MACIAS.
--- NOTE | 2019-12-13 14:35 | NUR ---
PT DISCHARGED HOME SAFELY WITH FAMILY MEMBER. TELE AND IV REMOVED. TIP INTACT. DRESSING APPLIED. RX GIVEN. D/C INSTRUCTIONS GIVEN AND PT VERBALIZED UNDERSTANDING. PT ESCORTED BY THE TECH VIA WHEEL CHAIR TO THE PRIVATE AUTO AT THE FRONT ENTRANCE. PT DENIED FURTHER NEEDS.
--- NOTE | 2019-12-14 02:56 | Discharge Summary ---
FINAL DISCHARGE DIAGNOSES: 1. Syncopal episode, likely vasovagal in nature. 2. Hyperlipidemia. 3. Community-acquired pneumonia. 4. Urinary tract infection. CONSULTANTS: Cardiology, Neurology. PHYSICAL EXAMINATION: VITAL SIGNS: Temperature is 98.4, pulse 65, respirations is 20, blood pressure 127/61, pulse ox 96% on room air. LABORATORY FINDINGS: White count 5.8, hemoglobin 12, hematocrit is 34.5, platelets of 169. Coagulation; PT 12, INR 0.87, PTT 25. Chemistry; sodium 138, potassium 3.5, chloride 106, bicarb 25, anion gap of 10, BUN 13, creatinine 0.76, calcium is 8.6, magnesium is 1.8. LFTs within normal range. Troponins were all negative. BNP was less than 10. Albumin was 3.3. LDL was 70. Urinalysis concerning for UTI. Coronavirus was found to be nondetected. Urine culture was Escherichia coli pansensitive. She was discharged on oral Omnicef. Blood cultures, no growth today x2. IMAGING STUDIES: Chest x-ray shows some mild bibasilar opacities, possible underlying pneumonia. CT brain shows no acute intracranial abnormality. Mild supratentorial chronic microvascular ischemic changes, but nothing acute noted. Bilateral carotid Doppler was found to be negative for any stenosis. MRI of the brain found to be negative for acute intracranial abnormalities. There is some chronic central pontine insult in the past. Mild supratentorial microvascular ischemic changes. A 2D echo was found to be normal. HOSPITAL COURSE: This is an 84-year-old female, who came into the emergency room after having a syncopal episode that occurred at home. The patient was admitted for further evaluation and management. Neurology and Cardiology were consulted. Carotid ultrasound was found to be normal. MRI of the brain was found to be negative. CT brain found to be negative. A 2D echo was found to be normal. It was felt that the patient likely has some vasovagal component leading to underlying syncopal episode. She worked with physical therapy and occupational therapy. She did find to have an underlying urinary tract infection, which could be playing a role in her syncopal episode. She was treated with IV antibiotics and discharged on oral Omnicef. Then, there was some concern for possible community-acquired pneumonia, was treated with antibiotics and discharged on oral antibiotics. The patient was otherwise doing well with no complaints. She has been cleared for discharge by all consultants. The patient was back to normal baseline. On the day of discharge, vital signs were stable, labs reviewed and stable. The patient is seen and evaluated and examined thoroughly on the day of discharge, no other complaints. The patient verbalized understanding and agrees to plan of care to follow up accordingly as an outpatient with her primary care physician in one week and the housekeeper cleaning cooking and neurologist in 2 weeks' time. MEDICATIONS: See med reconciliation form. DISPOSITION: Home. CONDITION: Stable. DIET: Heart healthy. In the event of any worsening symptoms, the patient was advised to come back to the ED for further evaluation. Discharge summary took greater than 35 minutes. MD OSCAR Akhtar/MODL /[id number]
--- OUTSIDE RECORDS SUMMARY | 2019-12-16 18:12 | XMS REPORT | Continuity of Care Document ---
Author Author [facility] t Organization [facility] Address [facility] Dewayne Lee. [address] [place] [phone] Phone Unavailable Care Team Providers Care Career Development Coordinator/Teacher Name Role Phone MD NASRIN BAUGHKESH PCP DARima BUENO Attphys Unavailable Denis MEJIA Attphys Unavailable DAXIMENA, S JIARIES Admphys Unavailable Payers Payer Name Policy Type Policy Number Effective Date Expiration Date Rima mendez [facility] Medicare Complete [id number] 2019 00:00:00 [facility] [id number] 2019 00:00:00 [facility] Problems Condition Name Condition Details Condition Category Status Onset Date Resolution Date Last Treatment Date Treating Clinician Comments Source Pre-syncope Problem Active [facility] Urinary tract infection Problem Active [facility] Allergies, Adverse Reactions, Alerts This patient has no known allergies or adverse reactions. Social History Social Habit Start Date Stop Date Quantity Comments Source Sex Assigned At 1935 00:00:00 1935 00:00:00 Female [facility] Medications Ordered Medication Name Filled Medication Name Start Date Stop Da te Current Medication? Ordering Clinician Indication Dosage Frequency Signature (SIG) Comments Components Source Aspirin Aspirin Yes 81 Daily [facility] Cefdinir (Omnicef) 300 Mg CAPSULE Cefdinir (Omnicef) 300 Mg CAPSULE Yes 300 Twice A Day [facility] Cranberry Fruit Concentrate (Azo Cranberry) 250 Mg TAB .CHEW Cranberry Fruit Concentrate (Azo Cranberry) 250 Mg TAB.CHEW Yes 250 Bedtime [facility] Simvastatin Simvastatin Yes 20 Bedtime [facility] Simvastatin Simvastatin Yes 40 Today At 9:00PM [facility] Ubidecarenone/Vit E Acetate (Co Q-10 100 Mg Softgel) 1 Each CAPSULE Ubidecarenone/Vit E Acetate (Co Q-10 100 Mg Softgel) 1 Each CAPSULE Yes 100 Daily [facility] Vitamin E Mixed (Vitamin E) 400 Unit CAPSULE Vitamin E Mixed (Vitamin E) 400 Unit CAPSULE Yes 180 Daily [facility] Vital Signs Vital Name Observation Time Observation Value Comments Source Body Temperature 2019-12-13 12:02:00 98.4 [degF] [facility] BMI (Body Mass Index) 2019-12-10 19:57:00 36.0 kg/m2 [facility] Weight 2019-12-10 12:43:00 210 [lb_av] [facility] Procedures Procedure Date / Time Performed Performing Clinician [facility] e Magnetic resonance imaging of brain without contrast 2019-12-12 00:00:00 [facility] Computed tomography of brain without radiopaque contrast 2019-11 00:00:00 [facility] Plan of Care Planned Activity Planned Date Details Comments Source Instructions Syncope [facility] Instructions Urinary Tract Infection - Women [facility] Encounters Start Date/Time End Date/Time [facility] Source 2019-12-12 16:01:00 2019-12-13 14:37:00 Discharged Inpatient 1 CATRINAAUSTINARIES [facility] [id number] [facility] 2018-10-25 09:54:00 2018-10-25 09:54:00 Registered Emergency Room 1 LIZBETH MEJIA [facility] [id number] [facility] Results Test Description Test Time Test Comments Results Result Comments Source Blood leukocytes automated count (number/volume) 2019-12-13 05:30:00 Test Item White Blood Count (test code = 6690-2) 5.86 4.8-10.8 [facility] erythrocytes automated count (number/volume)2019-12-13 05:30:00* Test Item Value Reference Range Interpretation Comments Red Blood Count (test code = 789-8) 3.88 3.6-5.1 [facility] Arlington[facility] hemoglobin measurement (moles/volume)2019-12-13 05:30:00* Test Item Value Reference Range Interpretation Comments Hemoglobin (test code = 97345-0) 12.1 12.0-16.0 [facility] ArlingtonAutomated blood hematocrit (volume fraction)2019-12-13 05:30:00* Test Item Value Reference Range Interpretation Comments Hematocrit (test code = 4544-3) 34.5 34.2-44.1 [facility] ArlingtonAutomated erythrocyte mean corpuscular dxvfgc9871-26-15 05:30:00* Test Item Value Reference Range Interpretation Comments Mean Corpuscular Volume (test code = 787-2) 88.9 81-99 [facility] ArlingtonAutomated erythrocyte mean corpuscular hemoglobin (mass per erythrocyte)2019-12-13 05:30:00* Test Item Value Reference Range Interpretation Comments Mean Corpuscular Hemoglobin (test code = 785-6) 31.2 28-32 [facility] ArlingtonAutomated erythrocyte mean corpuscular hemoglobin concentration measurement (mass/volume)2019-12-13 05:30:00* Test Item Value Reference Range Interpretation Comments Mean Corpuscular Hemoglobin Concent (test code = 786-4) 35.1 31-35 [facility] ArlingtonRDW UmsQx-Xam3917-20-28 05:30:00* Test Item Value Reference Range Interpretation Comments Red Cell Distribution Width (test code = 50907-2) 14.5 11.7 -14.4 [facility] ArlingtonAutomated blood platelet count (count/volume)2019-12-13 05:30:00* Test Item Value Reference Range Interpretation Comments Platelet Count (test code = 777-3) 169 140-360 [facility] ArlingtonAutomated blood segmented neutrophil count as percentage of total vhnfyqfmfz5879-42-87 05:30:00* Test Item Value Reference Range Interpretation Comments Neutrophils (%) (Auto) (test code = 05730-1) 64.5 38.7-80.0 [facility] ArlingtonAutomated blood lymphocyte count as percentage ot total cvwqcrjvnu4885-80-42 05:30:00* Test Item Value Reference Range Interpretation Comments Lymphocytes (%) (Auto) (test code = 736-9) 18.4 18.0-39.1 [facility] ArlingtonAutomated blood monocyte count as percentage of total xdselgvmpw2097-85-28 05:30:00* Test Item Value Reference Range Interpretation Comments Monocytes (%) (Auto) (test code = 5905-5) 14.2 4.4-11.3 [facility] ArlingtonAutomated blood eosinophil count as percentage of total cfzxugpnuu5100-84-07 05:30:00* Test Item Value Reference Range Interpretation Comments Eosinophils (%) (Auto) (test code = 713-8) 2.2 0.0-6.0 [facility] ArlingtonAutomated blood basophil count as percentage of total sfgpqgkgvt4574-32-98 05:30:00* Test Item Value Reference Range Interpretation Comments Basophils (%) (Auto) (test code = 706-2) 0.2 0.0-1.0 [facility] ArlingtonFluoroscopic procedure less than one hour wctiqhis8430-52-43 05:30:00* Test Item Value Reference Range Interpretation Comments IM GRANULOCYTES % (test code = IM GRANULOCYTES %) 0.5 0.0- 1.0 [facility] ArlingtonAutomated blood neutrophil count 2019-12-13 05:30:00* Test Item Value Reference Range Interpretation Comments Neutrophils # (Auto) (test code = 751-8) 3.8 2.1-6.9 [facility] ArlingtonBlood lymphocytes count (number/volume) 2019-12-13 05:30:00* Test Item Value Reference Range Interpretation Comments Lymphocytes # (Auto) (test code = 21895-1) 1.1 1.0-3.2 [facility] ArlingtonBlood monocytes automated count (number/volume)2019-12-13 05:30:00* Test Item Value Reference Range Interpretation Comments Monocytes # (Auto) (test code = 742-7) 0.8 0.2-0.8 [facility] ArlingtonAutomated blood eosinophil count 2019-12-13 05:30:00* Test Item Value Reference Range Interpretation Comments Eosinophils # (Auto) (test code = 711-2) 0.1 0.0-0.4 [facility] ArlingtonAutomated blood basophil count (count/volume)2019-12-13 05:30:00* Test Item Value Reference Range Interpretation Comments Basophils # (Auto) (test code = 704-7) 0.0 0.0-0.1 [facility] ArlingtonFluoroscopic procedure less than one hour qwtgzkgu9504-51-14 05:30:00* Test Item Value Reference Range Interpretation Comments Absolute Immature Granulocyte (auto (clarita t code = Absolute Immature Granulocyte (auto) 0.03 0-0.1 [facility] sodium measurement (moles/volume)2019-12-13 05:30:00* Test Item Value Reference Range Interpretation Comments Sodium Level (test code = 2951-2) 138 136-145 [facility] plasma potassium measurement (moles/volume)2019-12-13 05:30:00* Test Item Value Reference Range Interpretation Comments Potassium Level (test code = 2823-3) 3.5 3.5-5.1 [facility] plasma chloride measurement (moles/volume)2019-12-13 05:30:00* Test Item Value Reference Range Interpretation Comments Chloride Level (test code = 2075-0) 106 98-107 [facility]erum or plasma carbon dioxide, total measurement (moles/volume)2019-12-13 05:30:00* Test Item Value Reference Range Interpretation Comments Carbon Dioxide Level (test code = 2028-9) 25 22-29 [facility]um or plasma anion epu7419-54-76 05:30:00* Test Item Value Reference Range Interpretation Comments Anion Gap (test code = 88637-6) 10.5 8-16 [facility] or plasma urea nitrogen measurement (mass/volume)2019-12-13 05:30:00* Test Item Value Reference Range Interpretation Comments Blood Urea Nitrogen (test code = 3094-0) 13 - [facility]um or plasma creatinine measurement (mass/volume)2019-12-13 05:30:00* Test Item Value Reference Range Interpretation Comments Creatinine (test code = 2160-0) 0.76 0.57-1.11 [facility] or plasma urea nitrogen/creatinine mass vidth1572-32-29 05:30:00* Test Item Value Reference Range Interpretation Comments BUN/Creatinine Ratio (test code = 3097-3) 17 11-09 [facility] ArlingtonEstimated glomerular filtration rate (GFR) lccqworbuyjfw2671-35-95 05:30:00* Test Item Value Reference Range Interpretation Comments Estimat Glomerular Filtration Rate (test code = 838528732) > 60 >60 Ranges were taken from the National Kidney Disease Education Program and the [facility] Hospital[facility] [employer] Foundation literature.Reference ranges:60 or greater: Uytjgv72-76 ( for 3 consecutive months): Chronic kidney disease 15 or less: Kidney failureTexas Health Heart & Vascular Hospital ArlingtonGlucose fvwotccfqhg3706-47-41 05:30:00* Test Item Value Reference Range Interpretation Comments Glucose Level (test code = QOW8748) 90 74-118 [facility]um or plasma calcium measurement (mass/volume)2019-12-13 05:30:00* Test Item Value Reference Range Interpretation Comments Calcium Level (test code = 53194-7) 8.6 8.4-10.2 [facility] ArlingtonMRI BRAIN [id number] 14:20:00 [facility] [address] [address] Patient Name: LEOBARDO CELIS MR #: [id number] : 1935 Age/Sex: 84/F Req #: [id number] Adm Physician: STEVE FRITZ MD Ordered by: STEVE FRITZ MD Report #: [id number] Location: MED/SURG3 Room/Bed: [facility] Procedure: [id number] MRI/MRI BRAIN W O Exam Date: Exam Time: REPORT STATUS: Signed Exam: Brain MRI without IV contrast History: Near syncope. Comparison studies: Head CT 12/10/2019 [employer] ue: Sagittal and axial T2 FS, axial DWI, axial T2*GRE, axial T1 FLAIR and axi al coronal T2 FLAIR. Intravenous contrast: None Findings: Scalp: N ormal in signal. No masses. Bone marrow: Normal in signal intensity. Brai n sulci: Mildly prom. Ventricles: Mild compensatory dilatation. No hydrocephal us. Extra axial spaces: No mass, no fluid collection. Parenchyma: No ma ss, hemorrhage or acute ischemia. A few scattered T2 FLAIR hyperintense foci i n the supratentorial white matter are nonspecific but are most compatible with chronic microvascular ischemic changes. Chronic T2 FLAIR hyperintense insu lt within the central radha may also be due to chronic microvascular ischemic c hanges or less likely sequela of remote metabolic insult such as that from osm otic demyelination. There is mild nonspecific asymmetric volume loss along the right anteromedial temporal lobe and right hippocampus which is unchanged from the most recent 10/25/2018 CT but has slightly progressed from the more r [facility] head CT of 08/07/2015. Suprasellar region: No abnormalities. Crani ocervical junction: Patent foramen magnum. No Chiari malformation. Vessels: N ormal flow-voids in the arteries and sinuses. Incidental findings: Bilate ral intraocular lens replacements. IMPRESSION: No acute intracranial a bnormalities. Chronic findings: 1. Mild supratentorial microvascular is chemic changes. 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 3. Nonspec ific disproportion right anteromedial temporal lobe/hippocampal volume loss gonsalves perimposed on mild generalized parenchymal volume loss. Signed by: Dr. El Dozier M.D. on 12/12/2019 2:33 PM Dictated By: DARIUSZ DOZIER MD Sarah ctronically Signed By: DARIUSZ DOZIER MD on 07/27/20 1433 Transcribed By: FELIX RAN on 12/12/19 1433 COPY TO: STEVE FRITZ MD Serum or plasma total bilirubin measurement (mass/volume)2019-12-11 05:05:00* Test Item Value Reference Range Interpretation Comments Total Bilirubin (test code = 1975-2) 0.5 0.2-1.2 [facility] ArlingtonFluoroscopic procedure less than one hour gxmfbzbe5934-71-71 05:05:00* Test Item Value Reference Range Interpretation Comments Aspartate Amino Transf (AST/SGOT) (test code = Aspartate Amino Transf (AST/SGOT)) 27 5-34 [facility] or plasma alanine aminotransferase measurement (enzymatic activity/volume)2019-12-11 05:05:00* Test Item Value Reference Range Interpretation Comments Alanine Aminotransferase (ALT/SGPT) (test code = 1742-6) 18 0-55 [facility] or plasma protein measurement (mass/volume)2019-12-11 05:05:00* Test Item Value Reference Range Interpretation Comments Total Protein (test code = 2885-2) 5.9 6.5-8.1 [facility] or plasma albumin measurement (mass/volume)2019-12-11 05:05:00* Test Item Value Reference Range Interpretation Comments Albumin (test code = 1751-7) 3.3 3.5-5.0 [facility] ArlingtonPlasma globulin measurement (mass/volume) 2019-12-11 05:05:00* Test Item Value Reference Range Interpretation Comments Globulin (test code = 54263-9) 2.6 2.3-3.5 [facility] or plasma albumin/globulin mass loarw7903-39-06 05:05:00* Test Item Value Reference Range Interpretation Comments Albumin/Globulin Ratio (test code = 1759-0) 1.3 0.8-2.0 [facility] or plasma alkaline phosphatase measurement (enzymatic activity/volume)2019-12-11 05:05:00* Test Item Value Reference Range Interpretation Comments Alkaline Phosphatase (test code = 6768-6) 63 40-150 [facility]um or plasma triglyceride measurement (mass/volume)2019-12-11 05:05:00* Test Item Value Reference Range Interpretation Comments Triglycerides Level (test code = 2571-8) 135 0-149 [facility] or plasma cholesterol measurement (mass/volume)2019-12-11 05:05:00* Test Item Value Reference Range Interpretation Comments Cholesterol Level (test code = 2093-3) 132 0-199 Less than 200 mg/dL Low Kgbj270 - 239 mg/dL Borderline Bajb439 m g/dl and greater High Risk [facility] or plasma cholesterol in LDL measurement (mass/volume) 2019-12-11 05:05:00* Test Item Value Reference Range Interpretation Comments LDL Cholesterol (test code = 2089-1) 70 60-130 [facility]um or plasma cholesterol in HDL measurement (mass/volume)2019-12-11 05:05:00* Test Item Value Reference Range Interpretation Comments HDL Cholesterol (test code = 2085-9) 35 40-60 [facility]um or plasma total cholesterol/cholesterol in HDL mass srxaa3392-38-21 05:05:00* Test Item Value Reference Range Interpretation Comments Cholesterol/HDL Ratio (test code = 9830-1) 3.8 3.0-3.6 [facility] or plasma creatine kinase measurement (enzymatic activity/volume)2019-12-11 05:05:00* Test Item Value Reference Range Interpretation Comments Creatine Kinase (test code = 2157-6) 104 29-168 [facility]erum or plasma creatine kinase MB measurement (mass/volume)2019-12-11 05:05:00* Test Item Value Reference Range Interpretation Comments Creatine Kinase MB (test code = 22570-7) 1.30 0-5.0 [facility] ArlingtonTroponin I measurement by highly sensitive enzyme xodwxixaznn0781-90-29 05:05:00* Test Item Value Reference Range Interpretation Comments Troponin I (test code = 88152-3) 0.002 0-0.300 [facility] ArlingtonCHEST SINGLE (PORTABLE)2019-12-10 15:28:00 [facility] [address] [place] [id number] Patient Name: LEOBARDO CELIS MR #: [id number] : 1935 Age/Sex: 84/F Req #: [id number] Adm Physician: Ordered by: LO ANDREW MD Report #: [id number] Location: ER Room/Bed: Procedure: [id number] DX/CHEST SINGLE (PORTABLE) Exam Date: 12/10/19 Exam Time: 1401 REPORT STATUS: Signed EXAMINATION: CHEST SINGLE (PORTABLE) INDICATION: Near syncope. [facility] FINDINGS: TUBES and LINES: None. BECCA NGS: Lungs are well inflated. Mild patchy bibasilar opacities. No evidence of lobar consolidation or pulmonary edema. PLEURA: No pleural effusion or pneumothorax. HEART AND MEDIASTINUM: The cardiomediastinal silhouette is unremarkable. There are atherosclerotic calcifications within the aorta. BONES AND SOFT TISSUES: No acute osseous abnormality. UPPER ABDOMEN: No fr ee air under the diaphragm. IMPRESSION: Mild patchy bibasilar opacities , which may represent atelectasis or infectious process in the appropriate cli nical setting. No evidence of lobar pneumonia. Signed by: Cecilia Pressley on 12/10/2019 3:29 PM Dictated By: SONAL RAMSAY MD 1529 Transcribed By: KASSANDRA on 12/10/19 1529 COPY TO: LO ANDREW MD CT BRAIN TK9011-13-92 15:03:[address] [address] Patient Name: LEOBARDO CELIS MR #: [id number] : 1935 Age/Sex: 84/F Req #: [id number] Adm Physician: Ordered by: LO ANDREW MD Report #: [id number] Location: ER Room/Bed: Procedure: [id number] CT/CT BRAIN WO Exam Date: 12/10/19 Exam Time: 9 REPORT STATUS: Signed CT BRAIN WO HISTORY: Syncope COMPARISON: Head CT 10/25/2018 Technique: Noncontrast axial scans were obtained from skull base to the vertex. Coronal and sagittal sabino nstructions obtained from the axial data. One or more of the following dose r eduction techniques were used: Automated exposure control, adjustment of the m A and/or kV according to patient size, and/or utilization of iterative reconst ruction technique. DISCUSSION: Scalp/Skull: Unremarkable. Brain sulc i: Mildly prominent. Ventricles: Compensatory dilatation. Extra-axial spaces : No masses or fluid collections. Carotid siphon calcifications are present. Parenchyma: Mild bilateral deep white matter hypodensity is likely chroni c microvascular ischemic change. Otherwise, no masses, hemorrhage, or large vascular territory acute infarct. Dural sinuses: No abnormal densities. Sellar/Suprasellar region: Intact. Skull base: Intact. Incidental findings: None. IMPRESSION: 1. No acute intracranial abnormalities. 2. Mild gonsalves pratentorial chronic microvascular ischemic change. Mild generalized cerebral volume loss. Signed by: Dr. Pete Neumann M.D. on 12/10/2019 3:09 PM Dictated By: PETE NEUMANN MD 08 Transcribed By: KASSANDRA on 12/10/191508 COPY TO: LO ANDREW MD Urine color mmsztwdrmgjfa9017-61-46 13:35:00* Test Item Value Reference Range Interpretation Comments Urine Color (test code = 5778-6) YELLOW YELLOW [facility] ArlingtonUrine ywtuswr9348-20-85 13:35:00* Test Item Value Reference Range Interpretation Comments Urine Clarity (test code = 10265-8) SL CLOUDY CLEAR [facility]view[facility] gravity of Urine by Test strip 2019-12-10 13:35:00* Test Item Value Reference Range Interpretation Comments Urine Specific [place] (test code = 5811-5) >=1.030 1.010-1.02 5 [facility] ArlingtonUrine pH measurement by automated test vzxii0746-96-90 13:35:00* Test Item Value Reference Range Interpretation Comments Urine pH (test code = 40688-7) 6 5-7 [facility] ArlingtonUrine leukocyte esterase detection by qpypmttu7276-29-08 13:35:00* Test Item Value Reference Range Interpretation Comments Urine Leukocyte Esterase (test code = 5799-2) NEGATIVE NEGATIVE [facility] ArlingtonUrine nitrite ffviahkjr4155-83-10 13:35:00* Test Item Value Reference Range Interpretation Comments Urine Nitrite (test code = 17237-4) POSITIVE NEGATIVE [facility] ArlingtonUrine protein measurement by test strip (mass/volume)2019-12-10 13:35:00* Test Item Value Reference Range Interpretation Comments Urine Protein (test code = 5804-0) 2+ NEGATIVE [facility] ArlingtonUrine glucose qbiakzonw0110-68-41 13:35:00* Test Item Value Reference Range Interpretation Comments Urine Glucose (UA) (test code = 2349-9) NEGATIVE NEGATIVE [facility] ArlingtonUrine ketones detection by automated test ykcgi5030-22-38 13:35:00* Test Item Value Reference Range Interpretation Comments Urine Ketones (test code = 31971-5) 1+ NEGATIVE [facility] ArlingtonUrine urobilinogen measurement by test strip (mass/volume)2019-12-10 13:35:00* Test Item Value Reference Range Interpretation Comments Urine Urobilinogen (test code = 68864-2) 0.2 0.2-1 [facility] ArlingtonUrine total bilirubin measurement (mass/volume)2019-12-10 13:35:00* Test Item Value Reference Range Interpretation Comments Urine Bilirubin (test code = 1978-6) SMALL NEGATIVE [facility] ArlingtonUrine erythrocytes cmeueuylm1281-41-25 13:35:00* Test Item Value Reference Range Interpretation Comments Urine Blood (test code = 16788-7) MODERATE NEGATIVE [facility] ArlingtonAutomated urine sediment leukocyte count by microscopy (number/high power field)2019-12-10 13:35:00* Test Item Value Reference Range Interpretation Comments Urine WBC (test code = 5821-4) 0-5 0-5 [facility] ArlingtonErythrocytes detection in urine sediment by light yfyugektti6580-30-71 13:35:00* Test Item Value Reference Range Interpretation Comments Urine RBC (test code = 88652-3) 6-10 0-5 [facility] ArlingtonBacteria detection in urine sediment by light vfcjmqyiel7109-37-88 13:35:00* Test Item Value Reference Range Interpretation Comments Urine Bacteria (test code = 41582-7) MANY NONE [facility] ArlingtonEpithelial cells detection in urine sediment by light voydzvfqaz6115-60-59 13:35:00* Test Item Value Reference Range Interpretation Comments Urine Epithelial Cells (test code = 47376-4) FEW NONE [facility] ArlingtonBacterial urine pgveaea5673-85-75 13:35:00* Test Item Value Reference Range Interpretation Comments Urine Culture (test code = 630-4) ESCHERICHIA COLI#2 [facility] ArlingtonProthrombin time (PT) in platelet poor plasma by coagulation tlgob0172-92-53 12:58:00* Test Item Value Reference Range Interpretation Comments Prothrombin Time (test code = 5902-2) 12.3 11.9-14.5 [facility] ArlingtonINR in Platelet poor plasma by Coagulation tbpij4802-40-17 12:58:00* Test Item Value Reference Range Interpretation Comments Prothromb Time International Ratio (test code = 6301-6) 0.87 Oral Anticoagulant Therapy INR Values:1. Low Intensity Therapy 1.5 - 2.02 . Moderate Intensity Therapy 2.0 - 3.03. High Intensity Therapy(1) 2.5 - 3. 54. High Intensity Therapy(2) 3.0 - 4.05. Panic Value INR > 5.0 [facility] ArlingtonActivated partial thromboplastin time (aPTT) in platelet poor plasma by coagulation zmyfq8767-05-98 12:58:00* Test Item Value Reference Range Interpretation Comments Activated Partial Thromboplast Time (test code = 16181-0) 25.4 23.8-35.5 [facility] ArlingtonFluoroscopic procedure less than one hour fgdihjvr1597-82-18 12:58:00* Test Item Value Reference Range Interpretation Comments Lactic Acid Level (test code = Lactic Acid Level) 1.7 0.5- 2.0 [facility]er[facility] or plasma magnesium measurement (mass/volume)2019-12-10 12:58:00* Test Item Value Reference Range Interpretation Comments Magnesium Level (test code = 15044-1) 1.8 1.3-2.1 [facility] ArlingtonBNP Qor-zZme6238-22-25 12:58:00* Test Item Value Reference Range Interpretation Comments B-Type Natriuretic Peptide (test code = 45097-5) < 10.0 0-100 [facility] ArlingtonBlood fbrlkcy7605-06-10 12:58:00* Test Item Value Reference Range Interpretation Comments Blood Culture (test code = 30245936) NO GROWTH AFTER 72 HOURS [facility] ArlingtonFluoroscopic procedure less than one hour nnzoedrc0682-14-04 12:50:00* Test Item Value Reference Range Interpretation Comments Coronavirus (PCR) (test code = Coronavirus (PCR)) NOT DETECTED NOTD ETECTED SARS-COV2/RT-PCRNegative results do not preclude SARS-CoV-2 infection and should not be used as the sole basis for patient management decisions. Negative result s must be combined with clinical observations, patient history, and epidemiologi foster information. A false negative result may occur if a specimen is improperly c ollected, transported or handled.The limit of detection for this assay is 250 co pies/mLThe SARS-CoV-2 test is a rapid, real-time RT-PCR test intended for the qu alitative detection of nucleic acid from SARS-CoV-2 in nasopharyngeal swab speci men collected from individuals suspected of COVID-19 by their healthcare provide r. This test has not been Food and Drug Administration (FDA) cleared or approved and has been authorized by FDA under an Emergency Use Authorization (EUA). This EUA will be effective until the declaration that circumstances exist justifying the authorization of the emergency use of in vitro diagnostic test for detectio n and or diagnosis of COVID-19 is terminated under section 564(b) of the Act, or the the EUA is revoked under 564(g) of the ACT.[facility], [place] [address]SKPTexas [facility] ArlingtonBREAST ULTRASOUND [id number] 14:45:42 - DIAG MAMM BILATERAL DEVON CAD DIGITALBILATERAL DIGITAL DIAGNOSTIC MAMMOGRAM 3D/2D WITH CAD: 02/16/2019CLINICAL: Recall from screening. Digital breast tomosynthesis was performed in addition to routine CC and MLO views. Current mammographic images were evaluated by either a tarpipe M-Vu or a ChatterBlock ImageChecker CAD ( computer aided detection system). Comparison is made to exams dated 01/10/2019 mammogram, 11/26/2017 mammogram, and 03/22/2015 [facility] - [facility]. The tissue of both breasts is heterogeneously dense. This may lower the s ensitivity of mammography. Previously described area of asymmetry versus distor tion in the right breast does not persist on additional spot compression tomosyn thesis views consistent with superimposition of breast tissue.Subtle area of per sistent architectural distortion, only seen in the craniocaudal view, in the lef t breast laterally; approximately 3 cm from the nipple - see LSCC slice 21. INCO MPLETE: ADDITIONAL IMAGING EVALUATION NEEDEDSubtle area of architectural distort ion in the left breast, CC view laterally, anterior depth. Targeted left and bi lateral survey ultrasound to follow.- BREAST ULTRASOUND BILATERALULTRASOUND OF B OTH BREASTS: 02/16/2019Comparison is made to exams dated 01/10/2019 mammogram, 04/2018 mammogram, and 03/22/2015 mammogram - [facility]. Color flow and real-time ultrasound of both breasts were performed. Newman scale images of the real-time examination were reviewed. The breast tissue has heterogenou s background echotexture. Targeted and survey left breast ultrasound demonstrat es no suspicious sonographic abnormality; scattered simple cysts are noted but n o sonographic correlate for the mammographic area of subtle distortion. Survey right breast ultrasound demonstrates no suspicious sonographic abnormality. No lymphadenopathy was seen.IMPRESSION: SUSPICIOUS OF MALIGNANCY - FOLLOW-UP RECOMM ENDEDSubtle architectural distortion best seen in the left breast craniocaudal v iew laterally, anterior depth. Tomosynthesis guided core biopsy is recommended at this time, however if at the time of biopsy this cannot be reproduced then a short-term tomosynthesis follow-up is recommended.Results and recommendations we re discussed with the patient.Cruz Crawley M.D. ss/:02/16/2019 14: 45:42 Engagement Lead: Chioma CASTILLO, [facility]-letter se nt: BIRADS 4/5 Biopsy Mammogram BI-RADS: 0 Incomplete: Additional Imaging Eval uation Needed Ultrasound BI-RADS: 4c Suspicious abnormality - moderate concern b ut not classic for malignancyDIAG MAMM BILATERAL DEVON CAD [id number] 14:45:42 - DIAG MAMM BILATERAL DEVON CAD DIGITALBILATERAL DIGITAL DIAGNOSTIC MAMMOGRAM 3D/2D WITH CAD: 02/16/2019CLINICAL: Recall from screening. Digital breast tomosynthesis was performed in addition to routine CC and MLO views. Current mammographic images were evaluated by either a tarpipe M-Vu or a ChatterBlock ImageChecker CAD (computer aided detection system). Comparison is made to exams dated 01/10/2019 mammogram, 11/26/2017 mammogram, and 03/22/2015 mammogram - [facility]-. The tissue of both breasts is heterogeneously dense. This may lower the sensitivity of mammography. Previously described area of asymmetry versus distortion in the right breast does not persist on additional spot compression tomosynthesis views consistent with superimposition of breast tissue.Subtle area of persistent architectural distortion, only seen in the craniocaudal view, in the left breast laterally; approximately 3 cm from the nipple - see LSCC slice 21. INCOMPLETE: ADDITIONAL IMAGING EVALUATION NEEDEDSubtle area of architectural distortion in the left breast, CC view laterally, anterior depth. Targeted left and bilateral survey ultrasound to follow.- BREAST ULTRASOUND BILATERALULTRASOUND OF BOTH BREASTS: 02/16/2019Comparison is made to exams dated 01/10/2019 mammogram, 11/26/2017 mammogram, and [facility] Color flow and real-time ultrasound of both breasts were performed. Newman scale images of the real-time examination were reviewed. The breast tissue has heterogenous background echotexture. Targeted and survey left breast ultrasound demonstrates no suspicious sonographic abnormality; scattered simple cysts are noted but no sonographic correlate for the mammographic area of subtle distortion. Survey right breast ultrasound demonstrates no suspicious sonographic abnormality. No lymphadenopathy was seen.IMPRESSION: SUSPICIOUS OF MALIGNANCY - FOLLOW-UP RECOMM ENDEDSubtle architectural distortion best seen in the left breast craniocaudal v iew laterally, anterior depth. Tomosynthesis guided core biopsy is recommended at this time, however if at the time of biopsy this cannot be reproduced then a short-term tomosynthesis follow-up is recommended.Results and recommendations we re discussed with the patient.Cruz Crawley M.D. ss/:02/16/2019 14: 45:42 Engagement Lead: Chioma Markham , [facility]letter se nt: BIRADS 4/5 Biopsy Mammogram BI-RADS: 0 Incomplete: Additional Imaging Eval uation Needed Ultrasound BI-RADS: 4c Suspicious abnormality - moderate concern b ut not classic for malignancySCR MAMM BILATERAL DEVON CAD [id number] 10:02:12 - SCR MAMM BILATERAL DEVON CAD DIGITALBILATERAL DIGITAL SCREENING MAMMOGRAM 3D/2D WITH CAD: 01/10/2019CLINICAL: Asymptomatic. Digital breast tomosynthesis was performed in addition to routine CC and MLO views. Current mammographic images were evaluated by either a tarpipe M-Vu or a ChatterBlock ImageChecker CAD (computer aided detection system). Comparison is made to exams dated 11/26/2017 mammogram, 03/22/2015 mammogram, and [facility]16/2014 [facility]. The tissue of both breasts is scattered fibroglandular.? 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 No suspicious mass, malignant type calcification, or lymph node abnormality detected. IMPRESSION: INCOMPLETE ASSESSMENT: ADDITIONAL IMAGING EVALUATION RECOMMENDEDBilateral superimposition of breast tissue versus subtle questionable architectural distortions. Spot compression devon synthesis views and possible ultrasound is recommended at this time.Cruz Crawley M.D. ss/:01/11/2019 10:02:12 Engagement Lead: Sally CASTILLO, [facility]FWletter sent: Additional Imaging Mammogram BI-RADS: 0 IndeterminateUrine [id number] 12:50:00* Test Item Value Reference Range Interpretation Comments Urine WBC (test code = 5821-4) >50 0-5 H [facility] ArlingtonUrine [id number] 12:50:00* Test Item Value Reference Range Interpretation Comments Urine RBC (test code = 38584-8) 6-10 0-5 H [facility] ArlingtonUrine Liwwzudq8375-15-16 12:50:00* Test Item Value Reference Range Interpretation Comments Urine Bacteria (test code = 29588-3) MODERATE NONE H [facility] ArlingtonUrine Epithelial Zwbpl3225-72-19 12:50:00 * Test Item Value Reference Range Interpretation Comments Urine Epithelial Cells (test code = 17560-6) FEW NONE [facility] ArlingtonCreatine Kinase [id number] 12:26:00* Test Item Value Reference Range Interpretation Comments Creatine Kinase MB (test code = 48292-4) 1.50 0-5.0 [facility] ArlingtonTroponin [id number] 12:26:00* Test Item Value Reference Range Interpretation Comments Troponin I (test code = PGC2962) < 0.001 0-0.300 [facility]viewodium Vosml8229-82-82 12:22:00* Test Item Value Reference Range Interpretation Comments Sodium Level (test code = 2951-2) 135 136-145 L [facility] ArlingtonPotassium Obgsu2811-21-89 12:22:00* Test Item Value Reference Range Interpretation Comments Potassium Level (test code = 2823-3) 3.7 3.5-5.1 [facility] ArlingtonChloride Cdqrs0034-16-35 12:22:00* Test Item Value Reference Range Interpretation Comments Chloride Level (test code = 2075-0) 101 98-107 [facility] ArlingtonCarbon Dioxide Ekdsv1423-55-20 12:22:00* Test Item Value Reference Range Interpretation Comments Carbon Dioxide Level (test code = 8-9) 24 -29 [facility] ArlingtonAnion Iqr6377-12-27 12:22:00* Test Item Value Reference Range Interpretation Comments Anion Gap (test code = 63000-3) 13.7 8-16 [facility] ArlingtonBlood Urea Cigctxyc5882-39-50 12:22:00* Test Item Value Reference Range Interpretation Comments Blood Urea Nitrogen (test code = 3094-0) 15 7-26 [facility] ArlingtonCreatinine2019-06-10 12:22:00* Test Item Value Reference Range Interpretation Comments Creatinine (test code = 2160-0) 1.05 0.57-1.11 [facility] ArlingtonBUN/Creatinine Ozpai0929-17-73 12:22:00* Test Item Value Reference Range Interpretation Comments BUN/Creatinine Ratio (test code = 3097-3) 14 - [facility] ArlingtonEstimat Glomerular Filtration Rate 2018-10-25 12:22:00* Test Item Value Reference Range Interpretation Comments Estimat Glomerular Filtration Rate (test code = 088759950) 50 >60 L Ranges were taken from the National Kidney Disease Education Program and the [facility] literature.Reference ranges:60 or greater: Olxwbf24-38 ( for 3 consecutive months): Chronic kidney disease 15 or less: Kidney failureTexas Health Heart & Vascular Hospital ArlingtonGlucose Npwvi6078-83-99 12:22:00* Test Item Value Reference Range Interpretation Comments Glucose Level (test code = ELC8259) 113 74-118 [facility] ArlingtonCalcium Beeet3435-78-19 12:22:00* Test Item Value Reference Range Interpretation Comments Calcium Level (test code = 78739-8) 9.9 8.4-10.2 [facility] ArlingtonTotal Vbbkleryx7605-57-57 12:22:00* Test Item Value Reference Range Interpretation Comments Total Bilirubin (test code = 1975-2) 0.8 0.2-1.2 [facility] ArlingtonAspartate Amino Transf (AST/SGOT) 2018-10-25 12:22:00* Test Item Value Reference Range Interpretation Comments Aspartate Amino Transf (AST/SGOT) (test code = Aspartate Amino Transf (AST/SGOT)) 21 5-34 [facility] ArlingtonAlanine Aminotransferase (ALT/SGPT) 2018-10-25 12:22:00* Test Item Value Reference Range Interpretation Comments Alanine Aminotransferase (ALT/SGPT) (test code = 1742-6) 23 0-55 [facility] ArlingtonTotal Zplnvqp6305-08-12 12:22:00* Test Item Value Reference Range Interpretation Comments Total Protein (test code = 2885-2) 6.8 6.5-8.1 [facility] ArlingtonAlbumin2019-06-10 12:22:00* Test Item Value Reference Range Interpretation Comments Albumin (test code = 1751-7) 3.1 3.5-5.0 L [facility] ArlingtonGlobulin2019-06-10 12:22:00* Test Item Value Reference Range Interpretation Comments Globulin (test code = 11240-9) 3.7 2.3-3.5 H [facility] ArlingtonAlbumin/Globulin Cbxfe9644-91-61 12:22:00 * Test Item Value Reference Range Interpretation Comments Albumin/Globulin Ratio (test code = 1759-0) 0.8 0.8-2.0 [facility] ArlingtonAlkaline Opainurfttv0075-03-14 12:22:00* Test Item Value Reference Range Interpretation Comments Alkaline Phosphatase (test code = 6768-6) 69 40-150 [facility] ArlingtonCreatine Ctxege6392-85-34 12:22:00* Test Item Value Reference Range Interpretation Comments Creatine Kinase (test code = 2157-6) 90 29-168 [facility] ArlingtonProthrombin Jywy5773-01-55 12:19:00* Test Item Value Reference Range Interpretation Comments Prothrombin Time (test code = 5902-2) 14.0 11.9-14.5 [facility] ArlingtonProthromb Time International Ratio 2018-10-25 12:19:00* Test Item Value Reference Range Interpretation Comments Prothromb Time International Ratio (test code = 6301-6) 1.03 Oral Anticoagulant Therapy INR Values:1. Low Intensity Therapy 1.5 - 2.02 . Moderate Intensity Therapy 2.0 - 3.03. High Intensity Therapy(1) 2.5 - 3. 54. High Intensity Therapy(2) 3.0 - 4.05. Panic Value INR > 5.0 [facility] ArlingtonActivated Partial Thromboplast Time 2018-10-25 12:19:00* Test Item Value Reference Range Interpretation Comments Activated Partial Thromboplast Time (test code = 94442-4) 31.9 23.8-35.5 [facility] ArlingtonUrine Mlxbe3080-97-52 12:07:00* Test Item Value Reference Range Interpretation Comments Urine Color (test code = 5778-6) YELLOW YELLOW [facility] ArlingtonUrine Mzdnoli1146-29-79 12:07:00* Test Item Value Reference Range Interpretation Comments Urine Clarity (test code = 03467-2) CLOUDY CLEAR H [facility] ArlingtonUrine Specific Mwmttuo3987-89-29 12:07:00 * Test Item Value Reference Range Interpretation Comments Urine Specific [place] (test code = 5811-5) 1.025 1.010-1.02 5 [facility] ArlingtonUrine dG4312-12-03 12:07:00* Test Item Value Reference Range Interpretation Comments Urine pH (test code = 32433-2) 5.5 5-7 [facility] ArlingtonUrine Leukocyte Aeikwxpy0317-06-93 12:07:00* Test Item Value Reference Range Interpretation Comments Urine Leukocyte Esterase (test code = 90146-5) LARGE NEGATIV E [facility] ArlingtonUrine Hwjnbmn3453-65-95 12:07:00* Test Item Value Reference Range Interpretation Comments Urine Nitrite (test code = 22564-6) NEGATIVE NEGATIVE [facility] ArlingtonUrine Blxbfah9011-82-07 12:07:00* Test Item Value Reference Range Interpretation Comments Urine Protein (test code = 26881-1) 2+ NEGATIVE H [facility] ArlingtonUrine Glucose (UA)2018-10-25 12:07:00* Test Item Value Reference Range Interpretation Comments Urine Glucose (UA) (test code = 24448-0) NEGATIVE NEGATIVE [facility] ArlingtonUrine Iqvytzw2566-51-24 12:07:00* Test Item Value Reference Range Interpretation Comments Urine Ketones (test code = 28897-7) TRACE NEGATIVE H [facility] ArlingtonUrine Eufelqqmsyfc6040-39-86 12:07:00* Test Item Value Reference Range Interpretation Comments Urine Urobilinogen (test code = 83376-0) 1 0.2-1 [facility] ArlingtonUrine Zsfvzipym1300-72-67 12:07:00* Test Item Value Reference Range Interpretation Comments Urine Bilirubin (test code = 1977-8) NEGATIVE NEGATIVE [facility] ArlingtonUrine Rxfvw6219-30-13 12:07:00* Test Item Value Reference Range Interpretation Comments Urine Blood (test code = 78207-0) MODERATE NEGATIVE [facility] ArlingtonWhite Blood Ckaat3489-85-19 11:50:00* Test Item Value Reference Range Interpretation Comments White Blood Count (test code = 6690-2) 12.48 4.8-10.8 H [facility] ArlingtonRed Blood Adect4860-88-33 11:50:00* Test Item Value Reference Range Interpretation Comments Red Blood Count (test code = 789-8) 4.31 3.6-5.1 [facility] ArlingtonHemoglobin2019-06-10 11:50:00* Test Item Value Reference Range Interpretation Comments Hemoglobin (test code = 43694-5) 12.4 12.0-16.0 [facility] ArlingtonHematocrit2019-06-10 11:50:00* Test Item Value Reference Range Interpretation Comments Hematocrit (test code = 4544-3) 37.3 34.2-44.1 [facility] ArlingtonMean Corpuscular Aehgas9013-27-61 11:50:00* Test Item Value Reference Range Interpretation Comments Mean Corpuscular Volume (test code = 787-2) 86.5 81-99 [facility] ArlingtonMean Corpuscular Infjyjkhkw8680-32-59 11:50:00* Test Item Value Reference Range Interpretation Comments Mean Corpuscular Hemoglobin (test code = 785-6) 28.8 28-32 [facility] ArlingtonMean Corpuscular Hemoglobin Concent 2018-10-25 11:50:00* Test Item Value Reference Range Interpretation Comments Mean Corpuscular Hemoglobin Concent (test code = 786-4) 33.2 31-35 [facility] ArlingtonRed Cell Distribution Utzeq8057-23-14 11:50:00* Test Item Value Reference Range Interpretation Comments Red Cell Distribution Width (test code = 24488-2) 13.7 11.7 -14.4 [facility] ArlingtonPlatelet Unedm6725-45-83 11:50:00* Test Item Value Reference Range Interpretation Comments Platelet Count (test code = 777-3) 338 140-360 [facility] ArlingtonNeutrophils (%) (Auto)2018-10-25 11:50:00 * Test Item Value Reference Range Interpretation Comments Neutrophils (%) (Auto) (test code = 85771-6) 85.1 38.7-80.0 H [facility] ArlingtonLymphocytes (%) (Auto)2018-10-25 11:50:00 * Test Item Value Reference Range Interpretation Comments Lymphocytes (%) (Auto) (test code = 736-9) 5.5 18.0-39.1 L [facility] ArlingtonMonocytes (%) (Auto)2018-10-25 11:50:00* Test Item Value Reference Range Interpretation Comments Monocytes (%) (Auto) (test code = 5905-5) 8.3 4.4-11.3 [facility] ArlingtonEosinophils (%) (Auto)2018-10-25 11:50:00 * Test Item Value Reference Range Interpretation Comments Eosinophils (%) (Auto) (test code = 713-8) 0.1 0.0-6.0 [facility] ArlingtonBasophils (%) (Auto)2018-10-25 11:50:00* Test Item Value Reference Range Interpretation Comments Basophils (%) (Auto) (test code = 706-2) 0.2 0.0-1.0 [facility] ArlingtonIM GRANULOCYTES %2018-10-25 11:50:00* Test Item Value Reference Range Interpretation Comments IM GRANULOCYTES % (test code = IM GRANULOCYTES %) 0.8 0.0- 1.0 [facility] ArlingtonNeutrophils # (Auto)2018-10-25 11:50:00* Test Item Value Reference Range Interpretation Comments Neutrophils # (Auto) (test code = 751-8) 10.6 2.1-6.9 H [facility] ArlingtonLymphocytes # (Auto)2018-10-25 11:50:00* Test Item Value Reference Range Interpretation Comments Lymphocytes # (Auto) (test code = 36806-3) 0.7 1.0-3.2 L [facility] ArlingtonMonocytes # (Auto)2018-10-25 11:50:00* Test Item Value Reference Range Interpretation Comments Monocytes # (Auto) (test code = 742-7) 1.0 0.2-0.8 H [facility] ArlingtonEosinophils # (Auto)2018-10-25 11:50:00* Test Item Value Reference Range Interpretation Comments Eosinophils # (Auto) (test code = 711-2) 0.0 0.0-0.4 [facility] ArlingtonBasophils # (Auto)2018-10-25 11:50:00* Test Item Value Reference Range Interpretation Comments Basophils # (Auto) (test code = 704-7) 0.0 0.0-0.1 [facility] ArlingtonAbsolute Immature Granulocyte (auto 2018-10-25 11:50:00* Test Item Value Reference Range Interpretation Comments Absolute Immature Granulocyte (auto (clarita t code = Absolute Immature Granulocyte (auto) 0.10 0-0.1 [facility] ArlingtonCHEST 2 JHZLH7016-07-81 11:12:00 [facility] [address] [place] [address] Patient Name: LEOBARDO CELIS MR #: [id number] : 1935 Age/Sex: 83/F Req #: [id number] Adm Physician: Ordered by: DAYNE BARRAGAN [employer]OT Report #: [id number] Location: ER Room/Bed: Procedure: [id number] DX/CHEST 2 VIEWS Exam Date: 10/25/18 Exam Time: 1025 REPORT STATUS: Signed EXAMINATI ON: CHEST 2 VIEWS INDICATION: Dizziness, weakness. COMPARISON: None FINDINGS: TUBES and LINES: None. LUNGS: Lungs are well inflated. There is mild patchy left basilar opacity. No evidence of pulmona ry edema. PLEURA: No pleural effusion or pneumothorax. HEART AND MED IASTINUM: The cardiomediastinal silhouette is unremarkable. BONES AND SOFT TISSUES: No acute osseous abnormality. UPPER ABDOMEN: No free air und er the diaphragm. Surgical clips project over the upper abdomen. IMPRESSI ON: Mild patchy left basilar opacity, which may reflect a small focus of aspi ration or atelectasis. Recommend follow-up chest radiograph in 6-8 weeks to as sess for resolution. Signed by: Dr. Sonal Ramsay MD on 10/25/2018 11:14 AM Dictated By: SONAL RAMSAY MD 1114 COPY TO: DAYNE BARRAGAN MAPPING PILOT CT BRAIN IC1124-94-60 10:36:00 [place] [address] Patient Name: LEOBARDO CELIS MR #: [id number] : 1935 Age/Sex: 83/F Req #: [id number] Adm Physician: Ordered by: DAYNE BARRAGAN [employer] Report #: [id number] Location: ER Room/Bed: Procedure: [id number] CT/CT BRAIN WO Exam Date: 10/25/18 Exam Time: 1020 REPORT STATUS: Signed CT BRAIN WO HISTORY: Fainting, dizziness COMPARISON: None. Technique: No ncontrast axial scans were obtained from skull base to the vertex. Coronal an d sagittal reconstructions obtained from the axial data. One or more of the f ollowing dose reduction techniques were used: Automated exposure control, adju stment of the mA and/or kV according to patient size, and/or utilization of it erative reconstruction technique. DISCUSSION: Scalp/Skull: Mild left f rontal scalp subcutaneous edema is present. No calvarial fracture Brain sulc i: Mildly prominent. Ventricles: Compensatory dilatation. Extra-axial spaces : No masses or fluid collections. Carotid siphon calcifications are present. Parenchyma: Mild bilateral deep white matter hypodensity is likely chroni c microvascular ischemic change. Otherwise, no masses, hemorrhage, or large vascular territory acute infarct. Dural sinuses: No abnormal densities. Sellar/Suprasellar region: Intact. Skull base: Intact. Incidental findings: Both ocular lenses are thinned. IMPRESSION: 1. No acute intracranial ab normalities. 2. Mild supratentorial chronic microvascular ischemic change. Mi ld generalized cerebral volume loss. Signed by: Amber Cervantes on 10/25/2018 10:40 AM Dictated By: PETE NEUMANN MD [id number] Transcribed By: KASSANDRA on 03/05 104 COPY TO: DAYNE BARRAGAN NP
--- OUTSIDE RECORDS SUMMARY | 2019-12-16 18:14 | XMS REPORT | Continuity of Care Document ---
Author Author [facility] t Organization [facility] Address [facility] Dewayne Lee. 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 Name Role Phone MD NASRIN BAUGHKESH PCP DARima BUENO Attphys Unavailable Denis MEJIA Attphys Unavailable DAXIMENA, S JIARIES Admphys Unavailable Payers Payer Name Policy Type Policy Number Effective Date Expiration Date Rima mendez [facility] Medicare Complete [id number] 2019 00:00:00 [facility] [id number] 2019 00:00:00 [facility] Problems Condition Name Condition Details Condition Category Status Onset Date Resolution Date Last Treatment Date Treating Clinician Comments Source Pre-syncope Problem Active [facility] Urinary tract infection Problem Active [facility] Allergies, Adverse Reactions, Alerts This patient has no known allergies or adverse reactions. Social History Social Habit Start Date Stop Date Quantity Comments Source Sex Assigned At 1935 00:00:00 1935 00:00:00 Female [facility] Medications Ordered Medication Name Filled Medication Name Start Date Stop Da te Current Medication? Ordering Clinician Indication Dosage Frequency Signature (SIG) Comments Components Source Aspirin Aspirin Yes 81 Daily [facility] Cefdinir (Omnicef) 300 Mg CAPSULE Cefdinir (Omnicef) 300 Mg CAPSULE Yes 300 Twice A Day [facility] Cranberry Fruit Concentrate (Azo Cranberry) 250 Mg TAB .CHEW Cranberry Fruit Concentrate (Azo Cranberry) 250 Mg TAB.CHEW Yes 250 Bedtime [facility] Simvastatin Simvastatin Yes 20 Bedtime [facility] Simvastatin Simvastatin Yes 40 Today At 9:00PM [facility] Ubidecarenone/Vit E Acetate (Co Q-10 100 Mg Softgel) 1 Each CAPSULE Ubidecarenone/Vit E Acetate (Co Q-10 100 Mg Softgel) 1 Each CAPSULE Yes 100 Daily [facility] Vitamin E Mixed (Vitamin E) 400 Unit CAPSULE Vitamin E Mixed (Vitamin E) 400 Unit CAPSULE Yes 180 Daily [facility] Vital Signs Vital Name Observation Time Observation Value Comments Source Body Temperature 2019-12-13 12:02:00 98.4 [degF] [facility] BMI (Body Mass Index) 2019-12-10 19:57:00 36.0 kg/m2 [facility] Weight 2019-12-10 12:43:00 210 [lb_av] [facility] Procedures Procedure Date / Time Performed Performing Clinician [facility] Magnetic resonance imaging of brain without contrast 2019-12-12 00:00:00 [facility] Computed tomography of brain without radiopaque contrast 2019-11 00:00:00 [facility] Plan of Care Planned Activity Planned Date Details Comments Source Instructions Syncope [facility] Instructions Urinary Tract Infection - Women [facility] Encounters Start Date/Time End Date/Time [facility]counter [facility] ID Source 2019-12-12 16:01:00 2019-12-13 14:37:00 Discharged Inpatient 1 CATRINAAUSTINARIES [facility] [id number] [facility] 2018-10-25 09:54:00 2018-10-25 09:54:00 Registered Emergency Room 1 [facility] [id number] [facility] Results Test Description Test Time Test Comments Results Result Comments Source Blood leukocytes automated count (number/volume) 2019-12-13 05:30:00 Test Item White Blood Count (test code = 6690-2) 5.86 4.8-10.8 [facility] erythrocytes automated count (number/volume)2019-12-13 05:30:00* Test Item Value Reference Range Interpretation Comments Red Blood Count (test code = 789-8) 3.88 3.6-5.1 [facility] CenterBlood hemoglobin measurement (moles/volume)2019-12-13 05:30:00* Test Item Value Reference Range Interpretation Comments Hemoglobin (test code = 49875-1) 12.1 12.0-16.0 [facility] CenterAutomated blood hematocrit (volume fraction)2019-12-13 05:30:00* Test Item Value Reference Range Interpretation Comments Hematocrit (test code = 4544-3) 34.5 34.2-44.1 [facility] CenterAutomated erythrocyte mean corpuscular qsjehf5382-15-89 05:30:00* Test Item Value Reference Range Interpretation Comments Mean Corpuscular Volume (test code = 787-2) 88.9 81-99 [facility] CenterAutomated erythrocyte mean corpuscular hemoglobin (mass per erythrocyte)2019-12-13 05:30:00* Test Item Value Reference Range Interpretation Comments Mean Corpuscular Hemoglobin (test code = 785-6) 31.2 28-32 [facility] CenterAutomated erythrocyte mean corpuscular hemoglobin concentration measurement (mass/volume)2019-12-13 05:30:00* Test Item Value Reference Range Interpretation Comments Mean Corpuscular Hemoglobin Concent (test code = 786-4) 35.1 31-35 [facility] CenterRDW BbhTy-Cuy0787-14-28 05:30:00* Test Item Value Reference Range Interpretation Comments Red Cell Distribution Width (test code = 57823-3) 14.5 11.7 -14.4 [facility] CenterAutomated blood platelet count (count/volume)2019-12-13 05:30:00* Test Item Value Reference Range Interpretation Comments Platelet Count (test code = 777-3) 169 140-360 [facility] CenterAutomated blood segmented neutrophil count as percentage of total qotcpkqxol8102-02-24 05:30:00* Test Item Value Reference Range Interpretation Comments Neutrophils (%) (Auto) (test code = 33132-7) 64.5 38.7-80.0 [facility] CenterAutomated blood lymphocyte count as percentage ot total kgjzeibgom8977-95-19 05:30:00* Test Item Value Reference Range Interpretation Comments Lymphocytes (%) (Auto) (test code = 736-9) 18.4 18.0-39.1 [facility] CenterAutomated blood monocyte count as percentage of total tgumwyyjtx2679-92-25 05:30:00* Test Item Value Reference Range Interpretation Comments Monocytes (%) (Auto) (test code = 5905-5) 14.2 4.4-11.3 [facility] CenterAutomated blood eosinophil count as percentage of total thfqhaewel1568-57-57 05:30:00* Test Item Value Reference Range Interpretation Comments Eosinophils (%) (Auto) (test code = 713-8) 2.2 0.0-6.0 [facility] CenterAutomated blood basophil count as percentage of total yvyqtfgqpk0134-53-56 05:30:00* Test Item Value Reference Range Interpretation Comments Basophils (%) (Auto) (test code = 706-2) 0.2 0.0-1.0 [facility] CenterFluoroscopic procedure less than one hour frbpmdeo5854-25-46 05:30:00* Test Item Value Reference Range Interpretation Comments IM GRANULOCYTES % (test code = IM GRANULOCYTES %) 0.5 0.0- 1.0 [facility] CenterAutomated blood neutrophil count 2019-12-13 05:30:00* Test Item Value Reference Range Interpretation Comments Neutrophils # (Auto) (test code = 751-8) 3.8 2.1-6.9 [facility] CenterBlood lymphocytes count (number/volume) 2019-12-13 05:30:00* Test Item Value Reference Range Interpretation Comments Lymphocytes # (Auto) (test code = 88358-7) 1.1 1.0-3.2 [facility] CenterBlood monocytes automated count (number/volume)2019-12-13 05:30:00* Test Item Value Reference Range Interpretation Comments Monocytes # (Auto) (test code = 742-7) 0.8 0.2-0.8 [facility] CenterAutomated blood eosinophil count 2019-12-13 05:30:00* Test Item Value Reference Range Interpretation Comments Eosinophils # (Auto) (test code = 711-2) 0.1 0.0-0.4 [facility] CenterAutomated blood basophil count (count/volume)2019-12-13 05:30:00* Test Item Value Reference Range Interpretation Comments Basophils # (Auto) (test code = 704-7) 0.0 0.0-0.1 [facility] CenterFluoroscopic procedure less than one hour apbdylmb3943-94-22 05:30:00* Test Item Value Reference Range Interpretation Comments Absolute Immature Granulocyte (auto (clarita t code = Absolute Immature Granulocyte (auto) 0.03 0-0.1 [facility] plasma sodium measurement (moles/volume)2019-12-13 05:30:00* Test Item Value Reference Range Interpretation Comments Sodium Level (test code = 2951-2) 138 136-145 [facility]ererum or plasma potassium measurement (moles/volume)2019-12-13 05:30:00* Test Item Value Reference Range Interpretation Comments Potassium Level (test code = 2823-3) 3.5 3.5-5.1 [facility]ererum or plasma chloride measurement (moles/volume)2019-12-13 05:30:00* Test Item Value Reference Range Interpretation Comments Chloride Level (test code = 2075-0) 106 98-107 [facility] Centererum or plasma carbon dioxide, total measurement (moles/volume)2019-12-13 05:30:00* Test Item Value Reference Range Interpretation Comments Carbon Dioxide Level (test code = 2028-9) 25 22-29 [facility]ererum or plasma anion bjj5863-65-49 05:30:00* Test Item Value Reference Range Interpretation Comments Anion Gap (test code = 03554-8) 10.5 8-16 [facility]ererum or plasma urea nitrogen measurement (mass/volume)2019-12-13 05:30:00* Test Item Value Reference Range Interpretation Comments Blood Urea Nitrogen (test code = 3094-0) 13 - [facility]ererum or plasma creatinine measurement (mass/volume)2019-12-13 05:30:00* Test Item Value Reference Range Interpretation Comments Creatinine (test code = 2160-0) 0.76 0.57-1.11 [facility]ererum or plasma urea nitrogen/creatinine mass avpkh8463-84-86 05:30:00* Test Item Value Reference Range Interpretation Comments BUN/Creatinine Ratio (test code = 3097-3) 17 11-09 [facility] CenterEstimated glomerular filtration rate (GFR) wnkcxsttqftub9533-45-93 05:30:00* Test Item Value Reference Range Interpretation Comments Estimat Glomerular Filtration Rate (test code = 715083189) > 60 >60 Ranges were taken from the National Kidney Disease Education Program and the [facility] [employer] literature.Reference ranges:60 or greater: Gnnemg36-37 ( for 3 consecutive months): Chronic kidney disease 15 or less: Kidney failurePermian Regional Medical CenterGlucose zmvsldxzebn2587-89-33 05:30:00* Test Item Value Reference Range Interpretation Comments Glucose Level (test code = YWJ9394) 90 74-118 [facility]ererum or plasma calcium measurement (mass/volume)2019-12-13 05:30:00* Test Item Value Reference Range Interpretation Comments Calcium Level (test code = 15765-9) 8.6 8.4-10.2 [facility] CenterMRI BRAIN [id number] 14:20:00 [facility] [address] [address] Patient Name: LEOBARDO CELIS MR #: [id number] : 1935 Age/Sex: 84/F Req #: [id number] Adm Physician: STEVE FRITZ MD Ordered by: STEVE FRITZ MD Report #: [id number] Location: MED/SURG3 Room/Bed: [facility] Procedure: [id number] MRI/MRI BRAIN W O Exam Date: Exam [...] has slightly progressed from the more r [facility] head CT of 08/07/2015. Suprasellar region: No [...] Bilirubin (test code = 1975-2) 0.5 0.2-1.2 [facility] CenterFluoroscopic procedure less than one hour tvcuysqx8098-53-10 05:05:00* Test Item Value Reference Range Interpretation Comments Aspartate Amino Transf (AST/SGOT) (test code = Aspartate Amino Transf (AST/SGOT)) 27 5-34 [facility] Centererum or plasma alanine aminotransferase measurement (enzymatic activity/volume)2019-12-11 05:05:00* Test Item Value Reference Range Interpretation Comments Alanine Aminotransferase (ALT/SGPT) (test code = 1742-6) 18 0-55 [facility] Centererum or plasma protein measurement (mass/volume)2019-12-11 05:05:00* Test Item Value Reference Range Interpretation Comments Total Protein (test code = 2885-2) 5.9 6.5-8.1 [facility]ererum or plasma albumin measurement (mass/volume)2019-12-11 05:05:00* Test Item Value Reference Range Interpretation Comments Albumin (test code = 1751-7) 3.3 3.5-5.0 [facility] CenterPlasma globulin measurement (mass/volume) 2019-12-11 05:05:00* Test Item Value Reference Range Interpretation Comments Globulin (test code = 11090-2) 2.6 2.3-3.5 [facility] Centererum or plasma albumin/globulin mass qpgns9843-70-86 05:05:00* Test Item Value Reference Range Interpretation Comments Albumin/Globulin Ratio (test code = 1759-0) 1.3 0.8-2.0 [facility] Centererum or plasma alkaline phosphatase measurement (enzymatic activity/volume)2019-12-11 05:05:00* Test Item Value Reference Range Interpretation Comments Alkaline Phosphatase (test code = 6768-6) 63 40-150 [facility] Centererum or plasma triglyceride measurement (mass/volume)2019-12-11 05:05:00* Test Item Value Reference Range Interpretation Comments Triglycerides Level (test code = 2571-8) 135 0-149 [facility] Centererum or plasma cholesterol measurement (mass/volume)2019-12-11 05:05:00* Test Item Value Reference Range Interpretation Comments Cholesterol Level (test code = 2093-3) 132 0-199 Less than 200 mg/dL Low Fmmh920 - 239 mg/dL Borderline Ahxs167 m g/dl and greater High Risk [facility] Centererum or plasma cholesterol in LDL measurement (mass/volume) 2019-12-11 05:05:00* Test Item Value Reference Range Interpretation Comments LDL Cholesterol (test code = 2089-1) 70 60-130 [facility] Centererum or plasma cholesterol in HDL measurement (mass/volume)2019-12-11 05:05:00* Test Item Value Reference Range Interpretation Comments HDL Cholesterol (test code = 2085-9) 35 40-60 [facility] Centererum or plasma total cholesterol/cholesterol in HDL mass nyljb0467-51-66 05:05:00* Test Item Value Reference Range Interpretation Comments Cholesterol/HDL Ratio (test code = 9830-1) 3.8 3.0-3.6 [facility] Centererum or plasma creatine kinase measurement (enzymatic activity/volume)2019-12-11 05:05:00* Test Item Value Reference Range Interpretation Comments Creatine Kinase (test code = 2157-6) 104 29-168 [facility] Centererum or plasma creatine kinase MB measurement (mass/volume)2019-12-11 05:05:00* Test Item Value Reference Range Interpretation Comments Creatine Kinase MB (test code = 10482-0) 1.30 0-5.0 [facility] CenterTroponin I measurement by highly sensitive enzyme jetrqgcqfhx8238-57-82 05:05:00* Test Item Value Reference Range Interpretation Comments Troponin I (test code = 41411-0) 0.002 0-0.300 [facility] CenterCHEST SINGLE (PORTABLE)2019-12-10 15:28:00 [facility] [address] [place] [address] Patient Name: LEOBARDO CELIS MR #: [id number] : 1935 Age/Sex: 84/F Req #: [id number] Adm Physician: Ordered by: LO ANDREW MD Report #: [id number] Location: ER Room/Bed: Procedure: [id number] DX/CHEST SINGLE (PORTABLE) Exam Date: 12/10/19 Exam Time: 1401 REPORT STATUS: Signed EXAMINATION: CHEST SINGLE (PORTABLE) INDICATION: Near syncope. [facility]. FINDINGS: TUBES and LINES: None. [...] COPY TO: LO ANDREW MD CT BRAIN [id number] 15:03:[address] [address] Patient Name: LEOBARDO CELIS MR #: [id number] : 1935 Age/Sex: 84/F Req #: [id number] Adm Physician: Ordered by: LO ANDREW MD Report #: [id number] Location: ER Room/Bed: Procedure: [id number] CT/CT BRAIN WO Exam Date: 12/10/19 Exam [...] COPY TO: LO ANDREW MD Urine color bcanwmawoixze8163-37-77 13:35:00* Test Item Value Reference Range Interpretation Comments Urine Color (test code = 5778-6) YELLOW YELLOW [facility] CenterUrine yhlyisl7148-78-27 13:35:00* Test Item Value Reference Range Interpretation Comments Urine Clarity (test code = 79438-9) SL CLOUDY CLEAR [facility] Centerpecific gravity of Urine by Test strip 2019-12-10 13:35:00* Test Item Value Reference Range Interpretation Comments Urine Specific [place] (test code = 5811-5) >=1.030 1.010-1.02 5 [facility] CenterUrine pH measurement by automated test xpdse8452-27-74 13:35:00* Test Item Value Reference Range Interpretation Comments Urine pH (test code = 27055-1) 6 5-7 [facility] CenterUrine leukocyte esterase detection by txezngyc3072-14-34 13:35:00* Test Item Value Reference Range Interpretation Comments Urine Leukocyte Esterase (test code = 5799-2) NEGATIVE NEGATIVE [facility] CenterUrine nitrite swnoeygni9681-33-17 13:35:00* Test Item Value Reference Range Interpretation Comments Urine Nitrite (test code = 24943-9) POSITIVE NEGATIVE [facility] CenterUrine protein measurement by test strip (mass/volume)2019-12-10 13:35:00* Test Item Value Reference Range Interpretation Comments Urine Protein (test code = 5804-0) 2+ NEGATIVE [facility] CenterUrine glucose kcgmvyqgf1903-39-69 13:35:00* Test Item Value Reference Range Interpretation Comments Urine Glucose (UA) (test code = 2349-9) NEGATIVE NEGATIVE [facility] CenterUrine ketones detection by automated test cqorr5049-82-78 13:35:00* Test Item Value Reference Range Interpretation Comments Urine Ketones (test code = 76797-7) 1+ NEGATIVE [facility] CenterUrine urobilinogen measurement by test strip (mass/volume)2019-12-10 13:35:00* Test Item Value Reference Range Interpretation Comments Urine Urobilinogen (test code = 98022-4) 0.2 0.2-1 [facility] CenterUrine total bilirubin measurement (mass/volume)2019-12-10 13:35:00* Test Item Value Reference Range Interpretation Comments Urine Bilirubin (test code = 1978-6) SMALL NEGATIVE [facility] CenterUrine erythrocytes unztcfsxk1010-32-64 13:35:00* Test Item Value Reference Range Interpretation Comments Urine Blood (test code = 95740-1) MODERATE NEGATIVE [facility] CenterAutomated urine sediment leukocyte count by microscopy (number/high power field)2019-12-10 13:35:00* Test Item Value Reference Range Interpretation Comments Urine WBC (test code = 5821-4) 0-5 0-5 [facility] CenterErythrocytes detection in urine sediment by light bxijwdjtef7997-08-94 13:35:00* Test Item Value Reference Range Interpretation Comments Urine RBC (test code = 99131-3) 6-10 0-5 [facility] CenterBacteria detection in urine sediment by light qaiwtboajo9998-65-69 13:35:00* Test Item Value Reference Range Interpretation Comments Urine Bacteria (test code = 78961-3) MANY NONE [facility] CenterEpithelial cells detection in urine sediment by light jhmjjemkac4242-38-95 13:35:00* Test Item Value Reference Range Interpretation Comments Urine Epithelial Cells (test code = 68119-8) FEW NONE [facility] CenterBacterial urine dwylwag4586-94-48 13:35:00* Test Item Value Reference Range Interpretation Comments Urine Culture (test code = 630-4) ESCHERICHIA COLI#2 [facility] CenterProthrombin time (PT) in platelet poor plasma by coagulation cujlb1404-08-72 12:58:00* Test Item Value Reference Range Interpretation Comments Prothrombin Time (test code = 5902-2) 12.3 11.9-14.5 [facility] CenterINR in Platelet poor plasma by Coagulation ftrht1648-88-00 12:58:00* Test Item Value Reference Range Interpretation Comments Prothromb Time International Ratio (test code = 6301-6) 0.87 Oral Anticoagulant Therapy INR Values:1. Low Intensity Therapy 1.5 - 2.02 . Moderate Intensity Therapy 2.0 - 3.03. High Intensity Therapy(1) 2.5 - 3. 54. High Intensity Therapy(2) 3.0 - 4.05. Panic Value INR > 5.0 [facility] CenterActivated partial thromboplastin time (aPTT) in platelet poor plasma by coagulation csywy6351-46-06 12:58:00* Test Item Value Reference Range Interpretation Comments Activated Partial Thromboplast Time (test code = 64813-9) 25.4 23.8-35.5 [facility] CenterFluoroscopic procedure less than one hour ffzjtiup4613-52-41 12:58:00* Test Item Value Reference Range Interpretation Comments Lactic Acid Level (test code = Lactic Acid Level) 1.7 0.5- 2.0 [facility]ererum or plasma magnesium measurement (mass/volume)2019-12-10 12:58:00* Test Item Value Reference Range Interpretation Comments Magnesium Level (test code = 41620-8) 1.8 1.3-2.1 [facility] CenterBNP Bpv-gEcg9621-13-25 12:58:00* Test Item Value Reference Range Interpretation Comments B-Type Natriuretic Peptide (test code = 22122-6) < 10.0 0-100 [facility] CenterBlood kupilqs7703-93-37 12:58:00* Test Item Value Reference Range Interpretation Comments Blood Culture (test code = 78466807) NO GROWTH AFTER 72 HOURS [facility] CenterFluoroscopic procedure less than one hour vesrsdbf8891-17-41 12:50:00* Test Item Value Reference Range Interpretation [...] under 564(g) of the ACT.Testing performed by [facility] [place], [place] [address]RGMPermian [facility] Medical CenterBREAST ULTRASOUND LANYLZEGE7579-25-03 14:45:42 - DIAG MAMM BILATERAL DEVON CAD DIGITALBILATERAL DIGITAL DIAGNOSTIC MAMMOGRAM 3D/2D WITH CAD: 02/16/2019CLINICAL: Recall from screening. Digital breast tomosynthesis was performed in addition to routine CC and MLO views. Current mammographic images were evaluated by either a Connected Data M-Vu or a PlayCanvas ImageChecker CAD ( computer aided detection system). [...] the patient.Cruz Crawley M.D. ss/:02/16/2019 14: 45:42 Project Manager Process Development: Chioma CASTILLO, [facility]-letter se nt: BIRADS 4/5 Biopsy Mammogram BI-RADS: 0 Incomplete: Additional Imaging Eval uation Needed Ultrasound BI-RADS: 4c Suspicious abnormality - moderate concern b ut not classic for malignancyDIAG MAMM BILATERAL DEVON CAD [id number] 14:45:42 - DIAG MAMM BILATERAL DEVON CAD DIGITALBILATERAL DIGITAL DIAGNOSTIC MAMMOGRAM 3D/2D WITH CAD: 02/16/2019CLINICAL: Recall from screening. Digital breast tomosynthesis was performed in addition to routine CC and MLO views. Current mammographic images were evaluated by either a Connected Data M-Vu or a PlayCanvas ImageChecker CAD (computer aided detection system). Comparison is made to exams dated 01/10/2019 mammogram, 11/26/2017 mammogram, and 03/22/2015 mammogram - [facility]-. The tissue of both breasts [...] 11/26/2017 mammogram, [facility]. Color flow and real-time ultrasound of both [...] the patient.Cruz Crawley M.D. ss/:02/16/2019 14: 45:42 Project Manager Process Development: Chioma Markham , [facility]letter se nt: BIRADS 4/5 Biopsy Mammogram BI-RADS: 0 Incomplete: Additional Imaging Eval uation Needed Ultrasound BI-RADS: 4c Suspicious abnormality - moderate concern b ut not classic for malignancySCR MAMM BILATERAL DEVON CAD [id number] 10:02:12 - SCR MAMM BILATERAL DEVON CAD DIGITALBILATERAL DIGITAL SCREENING MAMMOGRAM 3D/2D WITH CAD: 01/10/2019CLINICAL: Asymptomatic. Digital breast tomosynthesis was performed in addition to routine CC and MLO views. Current mammographic images were evaluated by either a Connected Data M-Vu or a PlayCanvas ImageChecker CAD (computer aided detection system). Comparison is made to exams dated 11/26/2017 mammogram, 03/22/2015 mammogram, and 03/16/2014 [facility]. The tissue of both breasts is scattered [...] at this time.Cruz Crawley M.D. ss/:01/11/2019 10:02:12 Project Manager Process Development: Sally CASTILLO, [facility]-FWletter sent: Additional Imaging Mammogram BI-RADS: 0 IndeterminateUrine [id number] 12:50:00* Test Item Value Reference Range Interpretation Comments Urine WBC (test code = 5821-4) >50 0-5 H [facility] CenterUrine [id number] 12:50:00* Test Item Value Reference Range Interpretation Comments Urine RBC (test code = 69779-9) 6-10 0-5 H [facility] CenterUrine Lzrkywbx4708-00-62 12:50:00* Test Item Value Reference Range Interpretation Comments Urine Bacteria (test code = 59124-0) MODERATE NONE H [facility] CenterUrine Epithelial Mbava9394-34-39 12:50:00 * Test Item Value Reference Range Interpretation Comments Urine Epithelial Cells (test code = 55902-7) FEW NONE [facility] CenterCreatine Kinase [id number] 12:26:00* Test Item Value Reference Range Interpretation Comments Creatine Kinase MB (test code = 28348-4) 1.50 0-5.0 [facility] CenterTroponin Q8836-72-84 12:26:00* Test Item Value Reference Range Interpretation Comments Troponin I (test code = TQM2980) < 0.001 0-0.300 [facility] Vuwfs3732-19-37 12:22:00* Test Item Value Reference Range Interpretation Comments Sodium Level (test code = 2951-2) 135 136-145 L [facility] CenterPotassium Xmdwc3161-72-65 12:22:00* Test Item Value Reference Range Interpretation Comments Potassium Level (test code = 2823-3) 3.7 3.5-5.1 [facility] CenterChloride Icull6123-76-94 12:22:00* Test Item Value Reference Range Interpretation Comments Chloride Level (test code = 2075-0) 101 98-107 [facility] CenterCarbon Dioxide Woena2415-91-81 12:22:00* Test Item Value Reference Range Interpretation Comments Carbon Dioxide Level (test code = 8-9) 24 -29 [facility] CenterAnion Vlg3382-80-14 12:22:00* Test Item Value Reference Range Interpretation Comments Anion Gap (test code = 08158-3) 13.7 8-16 [facility] CenterBlood Urea Bgsoskrn2711-59-63 12:22:00* Test Item Value Reference Range Interpretation Comments Blood Urea Nitrogen (test code = 3094-0) 15 7-26 [facility] CenterCreatinine2019-06-10 12:22:00* Test Item Value Reference Range Interpretation Comments Creatinine (test code = 2160-0) 1.05 0.57-1.11 [facility] CenterBUN/Creatinine Pplme7296-31-47 12:22:00* Test Item Value Reference Range Interpretation Comments BUN/Creatinine Ratio (test code = 3097-3) 14 - [facility] CenterEstimat Glomerular Filtration Rate 2018-10-25 12:22:00* Test Item Value Reference Range Interpretation Comments Estimat Glomerular Filtration Rate (test code = 841365971) 50 >60 L Ranges were taken from the National Kidney Disease Education Program and the [facility] [employer] literature.Reference ranges:60 or greater: Xqajda34-83 ( for 3 consecutive months): Chronic kidney disease 15 or less: Kidney failurePerm[facility] Medical CenterGlucose Tntyf9320-69-16 12:22:00* Test Item Value Reference Range Interpretation Comments Glucose Level (test code = CVS8592) 113 74-118 [facility] CenterCalcium Scpbs9869-88-50 12:22:00* Test Item Value Reference Range Interpretation Comments Calcium Level (test code = 96327-1) 9.9 8.4-10.2 [facility] CenterTotal Debyceypm9821-92-67 12:22:00* Test Item Value Reference Range Interpretation Comments Total Bilirubin (test code = 1975-2) 0.8 0.2-1.2 [facility] CenterAspartate Amino Transf (AST/SGOT) 2018-10-25 12:22:00* Test Item Value Reference Range Interpretation Comments Aspartate Amino Transf (AST/SGOT) (test code = Aspartate Amino Transf (AST/SGOT)) 21 5-34 [facility] CenterAlanine Aminotransferase (ALT/SGPT) 2018-10-25 12:22:00* Test Item Value Reference Range Interpretation Comments Alanine Aminotransferase (ALT/SGPT) (test code = 1742-6) 23 0-55 [facility] CenterTotal Pmczrgc7984-72-38 12:22:00* Test Item Value Reference Range Interpretation Comments Total Protein (test code = 2885-2) 6.8 6.5-8.1 [facility] CenterAlbumin2019-06-10 12:22:00* Test Item Value Reference Range Interpretation Comments Albumin (test code = 1751-7) 3.1 3.5-5.0 L [facility] CenterGlobulin2019-06-10 12:22:00* Test Item Value Reference Range Interpretation Comments Globulin (test code = 10404-6) 3.7 2.3-3.5 H [facility] CenterAlbumin/Globulin Yenky6922-96-35 12:22:00 * Test Item Value Reference Range Interpretation Comments Albumin/Globulin Ratio (test code = 1759-0) 0.8 0.8-2.0 [facility] CenterAlkaline Futqftsicdb2625-71-34 12:22:00* Test Item Value Reference Range Interpretation Comments Alkaline Phosphatase (test code = 6768-6) 69 40-150 [facility] CenterCreatine Kxkchx4005-75-53 12:22:00* Test Item Value Reference Range Interpretation Comments Creatine Kinase (test code = 2157-6) 90 29-168 [facility] CenterProthrombin Ogeh6540-45-96 12:19:00* Test Item Value Reference Range Interpretation Comments Prothrombin Time (test code = 5902-2) 14.0 11.9-14.5 [facility] CenterProthromb Time International Ratio 2018-10-25 12:19:00* Test Item Value Reference Range Interpretation Comments Prothromb Time International Ratio (test code = 6301-6) 1.03 Oral Anticoagulant Therapy INR Values:1. Low Intensity Therapy 1.5 - 2.02 . Moderate Intensity Therapy 2.0 - 3.03. High Intensity Therapy(1) 2.5 - 3. 54. High Intensity Therapy(2) 3.0 - 4.05. Panic Value INR > 5.0 [facility] CenterActivated Partial Thromboplast Time 2018-10-25 12:19:00* Test Item Value Reference Range Interpretation Comments Activated Partial Thromboplast Time (test code = 22961-1) 31.9 23.8-35.5 [facility] CenterUrine Patyw8332-20-62 12:07:00* Test Item Value Reference Range Interpretation Comments Urine Color (test code = 5778-6) YELLOW YELLOW [facility] CenterUrine Tywesyv9900-41-46 12:07:00* Test Item Value Reference Range Interpretation Comments Urine Clarity (test code = 01966-4) CLOUDY CLEAR H [facility] CenterUrine Specific Ypfteau0068-31-80 12:07:00 * Test Item Value Reference Range Interpretation Comments Urine Specific [place] (test code = 5811-5) 1.025 1.010-1.02 5 [facility] CenterUrine qT7857-55-67 12:07:00* Test Item Value Reference Range Interpretation Comments Urine pH (test code = 61385-0) 5.5 5-7 [facility] CenterUrine Leukocyte Bhenisws0640-84-95 12:07:00* Test Item Value Reference Range Interpretation Comments Urine Leukocyte Esterase (test code = 89510-9) LARGE NEGATIV E [facility] CenterUrine Nnliedi8350-77-25 12:07:00* Test Item Value Reference Range Interpretation Comments Urine Nitrite (test code = 06087-5) NEGATIVE NEGATIVE [facility] CenterUrine Tsujshr2267-00-08 12:07:00* Test Item Value Reference Range Interpretation Comments Urine Protein (test code = 53817-3) 2+ NEGATIVE H [facility] CenterUrine Glucose (UA)2018-10-25 12:07:00* Test Item Value Reference Range Interpretation Comments Urine Glucose (UA) (test code = 50859-2) NEGATIVE NEGATIVE [facility] CenterUrine Irlxcfv5083-17-39 12:07:00* Test Item Value Reference Range Interpretation Comments Urine Ketones (test code = 18340-8) TRACE NEGATIVE H [facility] CenterUrine Ffoleukvrkrg2137-59-09 12:07:00* Test Item Value Reference Range Interpretation Comments Urine Urobilinogen (test code = 58269-5) 1 0.2-1 [facility] CenterUrine Ylyvjmpyo6003-31-21 12:07:00* Test Item Value Reference Range Interpretation Comments Urine Bilirubin (test code = 1977-8) NEGATIVE NEGATIVE [facility] CenterUrine Dwxrh9127-49-04 12:07:00* Test Item Value Reference Range Interpretation Comments Urine Blood (test code = 27880-6) MODERATE NEGATIVE [facility] CenterWhite Blood Rekcw1504-10-72 11:50:00* Test Item Value Reference Range Interpretation Comments White Blood Count (test code = 6690-2) 12.48 4.8-10.8 H [facility] CenterRed Blood Kncdl7584-22-52 11:50:00* Test Item Value Reference Range Interpretation Comments Red Blood Count (test code = 789-8) 4.31 3.6-5.1 [facility] CenterHemoglobin2019-06-10 11:50:00* Test Item Value Reference Range Interpretation Comments Hemoglobin (test code = 93191-6) 12.4 12.0-16.0 [facility] CenterHematocrit2019-06-10 11:50:00* Test Item Value Reference Range Interpretation Comments Hematocrit (test code = 4544-3) 37.3 34.2-44.1 [facility] CenterMean Corpuscular Zwhhrf7552-11-17 11:50:00* Test Item Value Reference Range Interpretation Comments Mean Corpuscular Volume (test code = 787-2) 86.5 81-99 [facility] CenterMean Corpuscular Afpnblqzov1619-79-63 11:50:00* Test Item Value Reference Range Interpretation Comments Mean Corpuscular Hemoglobin (test code = 785-6) 28.8 28-32 [facility] CenterMean Corpuscular Hemoglobin Concent 2018-10-25 11:50:00* Test Item Value Reference Range Interpretation Comments Mean Corpuscular Hemoglobin Concent (test code = 786-4) 33.2 31-35 [facility] CenterRed Cell Distribution Fjjph9040-07-98 11:50:00* Test Item Value Reference Range Interpretation Comments Red Cell Distribution Width (test code = 47209-9) 13.7 11.7 -14.4 [facility] CenterPlatelet Cdcgc6973-15-15 11:50:00* Test Item Value Reference Range Interpretation Comments Platelet Count (test code = 777-3) 338 140-360 [facility] CenterNeutrophils (%) (Auto)2018-10-25 11:50:00 * Test Item Value Reference Range Interpretation Comments Neutrophils (%) (Auto) (test code = 25539-7) 85.1 38.7-80.0 H [facility] CenterLymphocytes (%) (Auto)2018-10-25 11:50:00 * Test Item Value Reference Range Interpretation Comments Lymphocytes (%) (Auto) (test code = 736-9) 5.5 18.0-39.1 L [facility] CenterMonocytes (%) (Auto)2018-10-25 11:50:00* Test Item Value Reference Range Interpretation Comments Monocytes (%) (Auto) (test code = 5905-5) 8.3 4.4-11.3 [facility] CenterEosinophils (%) (Auto)2018-10-25 11:50:00 * Test Item Value Reference Range Interpretation Comments Eosinophils (%) (Auto) (test code = 713-8) 0.1 0.0-6.0 [facility] CenterBasophils (%) (Auto)2018-10-25 11:50:00* Test Item Value Reference Range Interpretation Comments Basophils (%) (Auto) (test code = 706-2) 0.2 0.0-1.0 [facility] CenterIM GRANULOCYTES %2018-10-25 11:50:00* Test Item Value Reference Range Interpretation Comments IM GRANULOCYTES % (test code = IM GRANULOCYTES %) 0.8 0.0- 1.0 [facility] CenterNeutrophils # (Auto)2018-10-25 11:50:00* Test Item Value Reference Range Interpretation Comments Neutrophils # (Auto) (test code = 751-8) 10.6 2.1-6.9 H [facility] CenterLymphocytes # (Auto)2018-10-25 11:50:00* Test Item Value Reference Range Interpretation Comments Lymphocytes # (Auto) (test code = 11910-4) 0.7 1.0-3.2 L [facility] CenterMonocytes # (Auto)2018-10-25 11:50:00* Test Item Value Reference Range Interpretation Comments Monocytes # (Auto) (test code = 742-7) 1.0 0.2-0.8 H [facility] CenterEosinophils # (Auto)2018-10-25 11:50:00* Test Item Value Reference Range Interpretation Comments Eosinophils # (Auto) (test code = 711-2) 0.0 0.0-0.4 [facility] CenterBasophils # (Auto)2018-10-25 11:50:00* Test Item Value Reference Range Interpretation Comments Basophils # (Auto) (test code = 704-7) 0.0 0.0-0.1 [facility] CenterAbsolute Immature Granulocyte (auto 2018-10-25 11:50:00* Test Item Value Reference Range Interpretation Comments Absolute Immature Granulocyte (auto (clarita t code = Absolute Immature Granulocyte (auto) 0.10 0-0.1 [facility] CenterCHEST 2 AMVDY4121-34-34 11:12:00 [facility] [address] [place] [address] Patient Name: LEOBARDO CELIS MR #: [id number] : 1935 Age/Sex: 83/F Req #: [id number] Adm Physician: Ordered by: DAYNE BARRAGAN BAG HANGER Report #: [id number] Location: ER Room/Bed: Procedure: [id number] DX/CHEST 2 VIEWS Exam Date: 10/25/18 Exam [...] RAMSAY MD 1114 COPY TO: DAYNE BARRAGAN BAG HANGER CT BRAIN EB1492-30-20 10:36:00 [place] [address] Patient Name: LEOBARDO CELIS MR #: [id number] : 1935 Age/Sex: 83/F Req #: [id number] Adm Physician: Ordered by: DAYNE BARRAGAN BAG HANGER Report #: [id number] Location: ER Room/Bed: Procedure: [id number] CT/CT BRAIN WO Exam Date: 10/25/18 Exam [...]
== END 2019-12-13 14:37 | disposition home or self-care (01) | DRG 193 ==
LOC: ER 12:35 → ERHOLD 17:02 → MED/SURG3 18:55 → OBSVTOIN 12-12 16:01
PROVIDERS: ADMIT Internal Medicine; ATTEND Internal Medicine
DX: J18.9 Pneumonia, unspecified organism (principal); G93.41 Metabolic encephalopathy; N39.0 Urinary tract infection, site not specified; R55 Syncope and collapse; E66.01 Morbid (severe) obesity due to excess calories; E78.5 Hyperlipidemia, unspecified; Z68.36 Body mass index [BMI] 36.0-36.9, adult; Z11.59 Encounter for screening for other viral diseases; Z79.82 Long term (current) use of aspirin; Z83.3 Family history of diabetes mellitus; Z82.49 Family history of ischemic heart disease and other diseases of the circulatory system; Z90.49 Acquired absence of other specified parts of digestive tract; Z90.710 Acquired absence of both cervix and uterus; Z98.890 Other specified postprocedural states; B96.20 Unspecified Escherichia coli [E. coli] as the cause of diseases classified elsewhere
CPT/HCPCS: 36415; 51700; 70450; 70551; 71045; 80048; 80053; 80061; 81001; 82550; 82553; 83605; 83735; 83880; 84484; 85025; 85610; 85730; 87040; 87086; 87186; 93005; 93306; 93880; 99285; G0378; J0456; J0696; J1650; J7030; U0002

== ENCOUNTER 2021-10-07 15:34 | Inpatient (IN) | payer MEDICARE, OTHER ==
[~2021-10-07] VITALS: Ht 162.6 cm; Wt 64.9 kg
[~2021-10-07 15:34] MED LIST changes: +AZO CRANBERRY250 MG PO; +CEFDINIR300 MG PO; +CO Q-10 100 MG1 EACH PO; +SIMVASTATIN20 MG PO; +VITAMIN E400 UNI1 PO
[2021-10-07 16:15] LABS: BASOPHILS % 0.4 % (0.0-1.0); EOSINOPHILS # (AUTO) 0.1 (0.0-0.4); EOSINOPHILS % 1.2 % (0.0-6.0); HEMATOCRIT 37.8 % (34.2-44.1); HEMOGLOBIN 12.2 g/dL (12.0-16.0); LYMPHOCYTES # (AUTO) 1.9 (1.0-3.2); LYMPHOCYTES % 25.3 % (18.0-39.1); MEAN CORPUSCULAR HEMOGLOBIN 28.6 pg (28-32); MEAN CORPUSCULAR HGB CONC 32.3 g/dL (31-35); MEAN CORPUSCULAR VOLUME 88.7 fL (81-99); MONOCYTES # (AUTO) 0.8 (0.2-0.8); MONOCYTES % 10.4 % (4.4-11.3); NEUTROPHILS # (AUTO) 4.6 (2.1-6.9); NEUTROPHILS % 61.5 % (38.7-80.0); PLATELET COUNT 276 x10e3/uL (140-360); RED BLOOD COUNT 4.26 x10e6/uL (3.6-5.1); RED CELL DISTRIBUTION WIDTH 14.6 % (11.7-14.4)
[2021-10-07] MEDS ORDERED: SODIUM CHLORIDE 0.9% 500ML 500 ML IV ONE (16:15)
[2021-10-07 16:19] LABS: INR 0.86; PROTHROMBIN TIME 12.5 seconds (11.9-14.5)
[2021-10-07 16:20] LABS: PARTIAL THROMBOPLASTIN TIME 25.2 seconds (23.8-35.5)
[2021-10-07 16:24] LABS: CLARITY,URINE HAZY (CLEAR); COLOR,URINE YELLOW (YELLOW); KETONES,URINE NEGATIVE (NEGATIVE); LEUKOCYTE ESTERASE ,URINE SMALL (NEGATIVE); NITRITE,URINE NEGATIVE (NEGATIVE); PROTEIN,URINE DIPSTICK 1+ (NEGATIVE); URINE UROBILINOGEN 0.2 mg/dL (0.2 - 1)
[2021-10-07 16:27] LABS: ALANINE AMINOTRANSFERASE 22 IU/L (0-55); ALBUMIN 3.5 g/dL (3.5-5.0); ALBUMIN/GLOBULIN RATIO 1.2 (0.8-2.0); ALKALINE PHOSPHATASE 82 IU/L (40-150); ANION GAP 12.6 mmol/L (8-16); BLOOD UREA NITROGEN 20 mg/dL (7-26); BUN/CREATININE RATIO 20 (6-25); CALCIUM 9.1 mg/dL (8.4-10.2); CARBON DIOXIDE 24 mmol/L (22-29); CHLORIDE 109 mmol/L (98-107); CREATINE KINASE 58 IU/L (29-168); CREATININE, SERUM 0.98 mg/dL (0.57-1.11); EST GLOMERULAR FILTRATION RATE 54 ML/MIN (60-); GLUCOSE 102 mg/dL (74-118); POTASSIUM 3.6 mmol/L (3.5-5.1); SODIUM 142 mmol/L (136-145)
[2021-10-07 16:34] LABS: AMORPHOUS SEDIMENT,URINE MANY (FEW); BACTERIA,URINE MODERATE /HPF; RBC,URINE 0-5 /HPF (0-5)
[2021-10-07] MEDS ORDERED: ONDANSETRON HCL INJ 2MG/ML 2ML 2 MG/ML VIAL IV PRN (18:15)
[2021-10-07] MEDS ORDERED: ACETAMINOPHEN 325 MG TAB PO PRN (18:15)
[2021-10-07] MEDS ORDERED: FAMOTIDINE 20 MG/2 ML VIAL IV SCH (18:15)
[2021-10-07 21:11] VITALS: BP 138/66
[2021-10-07 21:20] VITALS: BP 138/66
[2021-10-07 23:03] VITALS: BP 138/66
[2021-10-08] VITALS (8 sets, daily range): BP systolic 115–143; BP diastolic 56–63
[2021-10-08 00:40] LABS: CREATINE KINASE 81 IU/L (29-168)
[2021-10-08] MEDS ORDERED: BENZONATATE 100 MG CAP PO PRN (02:00)
[2021-10-08] MEDS ORDERED: ALBUTEROL/IPRATROPIUM 3 ML NEB NEB PRN (02:00)
[2021-10-08] MEDS ORDERED: POTASSIUM CHLORIDE 20 MEQ TAB CR PO PRN (02:00)
[2021-10-08] MEDS ORDERED: ONDANSETRON HCL INJ 2MG/ML 2ML 2 MG/ML VIAL IV PRN (02:00)
[2021-10-08] MEDS ORDERED: TRAMADOL HCL 50 MG TAB PO PRN (02:00)
[2021-10-08] MEDS ORDERED: DIPHENHYDRAMINE HCL 25 MG CAP PO PRN (02:00)
[2021-10-08] MEDS ORDERED: DEXTROSE 50% SYRINGE 50 ML IV PRN (02:00)
[2021-10-08] MEDS ORDERED: HYDRALAZINE HCL 20 MG/ML VIAL IV PRN (02:00)
[2021-10-08] MEDS ORDERED: SIMETHICONE 80 MG CHEW PO PRN (02:00)
[2021-10-08] MEDS ORDERED: LIDOCAINE 4% PATCH TP PRN (02:00)
[2021-10-08] MEDS ORDERED: DOCUSATE SODIUM 100 MG CAP PO PRN (02:00)
[2021-10-08] MEDS ORDERED: MELATONIN 5 MG TABLET PO PRN (02:00)
[2021-10-08] MEDS ORDERED: SODIUM CHLORIDE 0.9% 100 ML ONE (04:21)
[2021-10-08] MEDS: ACETAMINOPHEN 325 MG TAB PO PRN ×4 (04:30→23:06)
[2021-10-08 06:48] LABS: BASOPHILS % 0.2 % (0.0-1.0); EOSINOPHILS # (AUTO) 0.1 (0.0-0.4); EOSINOPHILS % 0.5 % (0.0-6.0); HEMATOCRIT 35.6 % (34.2-44.1); HEMOGLOBIN 11.3 g/dL (12.0-16.0); LYMPHOCYTES # (AUTO) 1.2 (1.0-3.2); LYMPHOCYTES % 12.6 % (18.0-39.1); MEAN CORPUSCULAR HGB CONC 31.7 g/dL (31-35); MEAN CORPUSCULAR VOLUME 88.3 fL (81-99); MONOCYTES # (AUTO) 0.9 (0.2-0.8); MONOCYTES % 10.2 % (4.4-11.3); NEUTROPHILS % 76.1 % (38.7-80.0); PLATELET COUNT 267 x10e3/uL (140-360); RED BLOOD COUNT 4.03 x10e6/uL (3.6-5.1); RED CELL DISTRIBUTION WIDTH 14.5 % (11.7-14.4)
[2021-10-08 07:17] LABS: CREATINE KINASE 83 IU/L (29-168)
[2021-10-08 07:50] LABS: CHOL/HDL RATIO 4.3 (3.0-3.6)
[2021-10-08] MEDS: PANTOPRAZOLE SOD 40 MG TABEC PO SCH (08:42)
[2021-10-08] MEDS: ASPIRIN 81 MG CHEW TAB PO SCH (08:42)
[2021-10-08] MEDS ORDERED: SODIUM CHLORIDE 0.9% 1000ML 1,000 ML IV SCH (13:15)
[2021-10-08 13:52] LABS: CREATINE KINASE 111 IU/L (29-168)
[2021-10-08] MEDS ORDERED: ENOXAPARIN SOD INJ 40 MG/0.4 ML SYR SC SCH (17:00)
[2021-10-08] MEDS ORDERED: SIMVASTATIN 20 MG TAB PO SCH (21:00)
[2021-10-09 04:00] VITALS: BP_SYST 139; BP_SYST 141; BP_DIAS 64; BP_DIAS 69
[2021-10-09 06:08] LABS: BASOPHILS % 0.4 % (0.0-1.0); EOSINOPHILS # (AUTO) 0.1 (0.0-0.4); EOSINOPHILS % 0.9 % (0.0-6.0); HEMATOCRIT 35.5 % (34.2-44.1); HEMOGLOBIN 11.4 g/dL (12.0-16.0); LYMPHOCYTES % 14.4 % (18.0-39.1); MEAN CORPUSCULAR HEMOGLOBIN 28.1 pg (28-32); MEAN CORPUSCULAR HGB CONC 32.1 g/dL (31-35); MEAN CORPUSCULAR VOLUME 87.4 fL (81-99); MONOCYTES # (AUTO) 0.6 (0.2-0.8); MONOCYTES % 8.8 % (4.4-11.3); NEUTROPHILS % 75.1 % (38.7-80.0); PLATELET COUNT 239 x10e3/uL (140-360); RED BLOOD COUNT 4.06 x10e6/uL (3.6-5.1); RED CELL DISTRIBUTION WIDTH 14.6 % (11.7-14.4)
[2021-10-09 06:33] LABS: ANION GAP 12.6 mmol/L (8-16); CALCIUM 8.2 mg/dL (8.4-10.2); CREATININE, SERUM 0.78 mg/dL (0.57-1.11); PHOSPHORUS 2.9 MG/DL (2.3-4.7); POTASSIUM 3.6 mmol/L (3.5-5.1)
[2021-10-09 06:59] LABS: THYROID STIMULATING HORMONE 4.203 uIU/mL (0.350-4.940)
[2021-10-09 07:58] VITALS: BP 128/75
[2021-10-09] MEDS: PANTOPRAZOLE SOD 40 MG TABEC PO SCH (08:00)
[2021-10-09 09:02] VITALS: BP 128/75
[2021-10-09] MEDS: ASPIRIN 81 MG CHEW TAB PO SCH (09:55)
[2021-10-09] MEDS: ACETAMINOPHEN 325 MG TAB PO PRN (09:55)
[2021-10-09 11:25] VITALS: BP 147/63
[2021-10-09] MEDS ORDERED: CEFDINIR300 MG PO (13:29)
[2021-10-09] MEDS ORDERED: ONDANSETRON HCL 4 MG ORAL DISINTEGRATING TAB PO PRN (13:30)
== END 2021-10-09 14:01 | disposition home or self-care (01) | DRG 312 ==
LOC: ER 15:51 → ERHOLD 18:08 → MED/SURG2 21:12
PROVIDERS: ADMIT Internal Medicine; ATTEND Internal Medicine
DX: R55 Syncope and collapse (principal); N39.0 Urinary tract infection, site not specified; R00.1 Bradycardia, unspecified; S00.81XA Abrasion of other part of head, initial encounter; S00.83XA Contusion of other part of head, initial encounter; W18.39XA Other fall on same level, initial encounter; E78.5 Hyperlipidemia, unspecified; F03.90 Unspecified dementia, unspecified severity, without behavioral disturbance, psychotic disturbance, mood disturbance, and anxiety; B96.4 Proteus (mirabilis) (morganii) as the cause of diseases classified elsewhere; Z91.81 History of falling; Y93.01 Activity, walking, marching and hiking; Y92.480 Sidewalk as the place of occurrence of the external cause; Z20.822 Contact with and (suspected) exposure to COVID-19; Z90.49 Acquired absence of other specified parts of digestive tract; Z79.82 Long term (current) use of aspirin; Z87.440 Personal history of urinary (tract) infections
CPT/HCPCS: 36415; 70450; 70486; 70551; 71045; 72125; 80048; 80053; 80061; 81001; 82550; 82553; 82948; 83036; 83735; 83880; 84100; 84443; 84484; 85025; 85610; 85730; 87086; 87186; 93005; 93306; 93880; 94799; 99251; 99284; J0696; J1650; J7030; J7040; J7050; U0002